=== PATIENT | female | born 1935 | race Caucasian/White ===

== ENCOUNTER → 2016-08-19 | Outpatient (CLI) | payer OTHER ==
[~2016-08-19] MED LIST: ALLO300T2 PO; ASPI81TA28 PO; ATEN-173 PO; Amlodipine PO; CHOL200010 PO; CINN1CAP2 PO; CRAN1CAP6 PO; FURO40TA3 PO; INSUINJ4 SQ; SITA50TA PO; potassium PO
[2016-08-19 17:26] LABS: HEMATOCRIT 31.4 % (37-47); MEAN CORPUSCULAR HGB CONC 31.2 g/dl (32-36); MEAN PLATELET VOLUME 10.4 fL (7.4-10.4); PLATELET COUNT 226 K/uL (130-400); RED BLOOD COUNT 3.27 M/uL (4.2-5.4); WHITE BLOOD COUNT 8.48 K/uL (4.8-10.8)
[2016-08-19 17:44] LABS: BLOOD UREA NITROGEN 41 mg/dl (7-18); BUN/CREATININE RATIO 21.4 (10-20); CALCIUM 8.5 mg/dl (8.5-10.1); CARBON DIOXIDE 27 mmol/L (21-32); CHLORIDE 104 mmol/L (98-107); GLUCOSE 158 mg/dl (70-99); POTASSIUM 4.2 mmol/L (3.5-5.1); SODIUM 140 mmol/L (136-145)
[2016-08-19 17:49] LABS: PHOSPHORUS 4.2 mg/dl (2.5-4.9); TOTAL IRON BINDING CAPACITY 302 mcg/dl (250-450)
== END | disposition home or self-care (01) ==
LOC: C.LABPVFM 13:37
PROVIDERS: ATTEND Internal Medicine Nephrology
DX: I10 Essential (primary) hypertension (principal); N18.3 Chronic kidney disease, stage 3 (moderate); Z95.2 Presence of prosthetic heart valve; E55.9 Vitamin D deficiency, unspecified

== ENCOUNTER → 2016-09-16 | Outpatient (CLI) | payer OTHER ==
[2016-09-17 06:03] LABS: ESTIMATED AVERAGE GLUCOSE 134 mg/dl; HA1C FLAG Normal (Normal)
== END | disposition home or self-care (01) ==
LOC: C.LABPVFM 13:34
PROVIDERS: ATTEND Nurse Practitioner
DX: E11.9 Type 2 diabetes mellitus without complications (principal)

== ENCOUNTER → 2017-03-17 | Outpatient (CLI) | payer OTHER ==
[2017-03-17 17:40] LABS: HEMATOCRIT 34.9 % (37-47); MEAN CELL VOLUME 98.9 fL (80-100); MEAN CORPUSCULAR HEMOGLOBIN 30.3 pg (25-34); MEAN CORPUSCULAR HGB CONC 30.7 g/dl (32-36); MEAN PLATELET VOLUME 10.9 fL (7.4-10.4); PLATELET COUNT 252 K/uL (130-400); RED BLOOD COUNT 3.53 M/uL (4.2-5.4); WHITE BLOOD COUNT 9.61 K/uL (4.8-10.8)
[2017-03-17 17:46] LABS: BLOOD UREA NITROGEN 34 mg/dl (7-18); BUN/CREATININE RATIO 21.1 (10-20); CALCIUM 8.3 mg/dl (8.5-10.1); CARBON DIOXIDE 29 mmol/L (21-32); CHLORIDE 105 mmol/L (98-107); GLUCOSE 242 mg/dl (70-99); POTASSIUM 3.9 mmol/L (3.5-5.1); SODIUM 138 mmol/L (136-145)
[2017-03-17 17:51] LABS: FERRITIN 82.8 ng/ml (8.0-388.0); PHOSPHORUS 3.7 mg/dl (2.5-4.9); TOTAL IRON BINDING CAPACITY 281 mcg/dl (250-450)
[2017-03-18 06:58] LABS: ESTIMATED AVERAGE GLUCOSE 220 mg/dl; HA1C FLAG Normal (Normal)
== END | disposition home or self-care (01) ==
LOC: C.LABPVFM 13:46
PROVIDERS: ATTEND Nurse Practitioner
DX: I12.9 Hypertensive chronic kidney disease with stage 1 through stage 4 chronic kidney disease, or unspecified chronic kidney disease (principal); R60.9 Edema, unspecified; N18.3 Chronic kidney disease, stage 3 (moderate); E11.65 Type 2 diabetes mellitus with hyperglycemia; E55.9 Vitamin D deficiency, unspecified; D64.9 Anemia, unspecified

== ENCOUNTER → 2017-04-28 | Outpatient (CLI) | payer OTHER ==
--- NOTE | 2017-04-28 14:26 | DIAGNOSTIC IMAGING REPORT ---
CERVICAL SPINE 5 VIEWS HISTORY: NECK PAIN PARESTHESIA OF UPPER EXTREMITY WEAKNESS OF BOTH COMPARISON: None. FINDINGS: The cervical spine is visualized from C1 through C7. There is no fracture. Moderate facet osteoarthritis seen from the C3-C6 levels. 2.5 mm of anterolisthesis of C4 on C5. Moderate disc space narrowing at C3-C4, C4-C5, C5-C6 with endplate osteophytes. Severe disc space narrowing at C6-C7. Mild bilateral neural foraminal narrowing at C3-C4 and C4-C5. Moderate right-sided neural foraminal narrowing at C5-C6. Prevertebral soft tissues and the atlantodens interval are intact. IMPRESSION: 1. Moderately advanced degenerative changes within the cervical spine as described above. 2. There is 2.5 mm of anterolisthesis of C4 on C5. Electronically signed by: Duane Mathew M.D. 04/28/2017 2:24 PM Dictated Date/Time: 04/28/2017 2:17 PM
== END | disposition home or self-care (01) ==
LOC: C.RADPV 13:50
PROVIDERS: ATTEND Neuromusculoskeletal Medicine & OMM
DX: M54.2 Cervicalgia (principal); R20.2 Paresthesia of skin; R29.898 Other symptoms and signs involving the musculoskeletal system

== ENCOUNTER 2017-05-23 13:24 | Inpatient (IN) | payer OTHER ==
[~2017-05-23] VITALS: Ht 170.2 cm; Wt 102.7 kg
--- NOTE | 2017-05-23 14:02 | EMERGENCY ROOM VISIT NOTE ---
History First contact with patient: 13:31 Chief Complaint: FALL Stated Complaint: FALLS History of Present Illness The patient is a 82 year old female who presents to the Emergency Room with complaints of frequent falls over the last several weeks. The patient was in her recliner last night. She tried to get up when her left leg gave out and she crumpled to the floor landing on her buttocks. She did strike the back of her head against a carpeted floor. There was no loss of consciousness. She denies any lightheadedness, dizziness, chest pain, shortness of breath or heart palpitations before she fell. The patient also had a fall the night before where she struck her face against a piece of furniture. Again, no loss of consciousness. She does not take any blood thinners. The patient typically ambulates with 2 canes. She unfortunately broke her right wrist this past week so she is only able to use one cane. She otherwise reports being in fairly good health without any recent illnesses. Review of Systems 10 system review performed and negative unless noted in HPI or below Past Medical/Surgical History Medical Problems: (1) Aortic stenosis (2) Falls frequently (3) HTN (hypertension) (4) Insulin dependent diabetes mellitus Family History Diabetes mellitus FH: heart disease Social History Smoking Status: Never Smoker Alcohol Use: none Marital Status: Housing Status: lives with significant other Occupation Status: retired Current/Historical Medications Scheduled Allopurinol (Zyloprim), 300 MG PO DAILY Amlodipine (Norvasc), 5 MG PO DAILY Aspirin (Aspirin Ec), 81 MG PO DAILY Atenolol (Tenormin), 50 MG PO BID Atorvastatin (Lipitor), 40 MG PO HS Cholecalciferol (Vitamin D), 1 CAP PO DAILY Cinnamon (Cinnamon), 500 MG PO DAILY Cranberry (Vaccinium Macrocarp (Cranberry), 1 CAP PO DAILY Ferrous Sulfate (Kp Ferrous Sulfate), 325 MG PO DAILY Furosemide (Lasix), 40 MG PO BID Insulin Glargine (Lantus Solostar), 48 UNITS SC QAM Insulin Glargine (Lantus Solostar), 40 UNITS SC QPM Potassium Chloride (Micro-K Ext Rel), 20 MEQ PO DAILY Sitagliptin Phosphate (Januvia), 50 MG PO DAILY Physical Exam Vital Signs Date Time Temp Pulse Resp B/P (MAP) Pulse Ox O2 Delivery O2 Flow Rate FiO2 05/23/17 15:22 62 16 152/52 99 Room Air 05/23/17 13:40 36.9 66 20 162/57 96 Room Air 05/23/17 13:36 67 Physical Exam VITALS: Vitals are noted on the nurse's note and reviewed by myself. Vital signs stable. GENERAL: 82-year-old female, in no acute distress, HEAD: Right periorbital ecchymosis noted. EARS: External auditory canals clear, tympanic membranes pearly mckee without erythema or effusion bilaterally. EYES: Pupils equal round and reactive to light and accommodation. Conjunctivae without injection, sclerae without icterus. Extraocular movements intact. MOUTH: Mucous membranes moist. Tonsils are not enlarged. Pharynx without erythema or exudate. Uvula midline. Airway patent. Tongue does not deviate. NECK: Tenderness over the cervical spinous processes. Full range of motion of the neck. HEART: Regular rate and rhythm without murmurs gallops or rubs. LUNGS: Clear to auscultation bilaterally without wheezes, rales or rhonchi. No accessory muscle use. ABDOMEN: Positive bowel sounds x 4.Soft, nontender, without organomegaly. No guarding or rebound tenderness. MUSCULOSKELETAL: No muscle atrophy, erythema, or edema noted. Bilateral weakness noted of the lower extremities at 2/5. Tenderness to palpation over the lumbar spinous processes. Splint in place on the right wrist. NEURO: Patient was alert and oriented to person place and time. Normal sensation to touch. No focal neurological deficits. Medical Decision & Procedures ER Provider Diagnostic Interpretation: Maxillofacial CT IMPRESSION: There is no evidence of facial bone fracture. Electronically signed by: Paddy Iglesias M.D. Right hip x-ray IMPRESSION: Osteopenia and arthritic change as above. No right hip fracture is identified. Electronically signed by: Paddy Iglesias M.D. 05/23/2017 3:[address] head IMPRESSION: 1. There is no hemorrhage, mass effect, or evidence of acute territorial ischemia by CT criteria. 2. Right frontal, periorbital, and premalar scalp contusion. No depressed calvarial fracture is seen. Electronically signed by: Paddy Iglesias M.D. Chest x-ray IMPRESSION: Low lung volumes and cardiomegaly with no acute cardiopulmonary abnormality. Laboratory Results 05/23/17 14:00 Red Blood Count 3.31, Mean Corpuscular Volume 95.8, Mean Corpuscular Hemoglobin 31.1, Mean Corpuscular Hemoglobin Concent 32.5, Mean Platelet Volume 10.1, Neutrophils (%) (Auto) 74.4, Lymphocytes (%) (Auto) 17.0, Monocytes (%) (Auto) 7.2, Eosinophils (%) (Auto) 0.9, Basophils (%) (Auto) 0.4, Neutrophils # (Auto) 6.80, Lymphocytes # (Auto) 1.56, Monocytes # (Auto) 0.66, Eosinophils # (Auto) 0.08, Basophils # (Auto) 0.04 05/23/17 14:00 Test 05/23/17 14:00 05/23/17 14:24 White Blood Count 9.15 K/uL (4.8-10.8) Red Blood Count 3.31 M/uL (4.2-5.4) Hemoglobin 10.3 g/dL (12.0-16.0) Hematocrit 31.7 % (37-47) Mean Corpuscular Volume 95.8 fL (80-100) Mean Corpuscular Hemoglobin 31.1 pg (25-34) Mean Corpuscular Hemoglobin Concent 32.5 g/dl (32-36) Platelet Count 198 K/uL (130-400) Mean Platelet Volume 10.1 fL (7.4-10.4) Neutrophils (%) (Auto) 74.4 % Lymphocytes (%) (Auto) 17.0 % Monocytes (%) (Auto) 7.2 % Eosinophils (%) (Auto) 0.9 % Basophils (%) (Auto) 0.4 % Neutrophils # (Auto) 6.80 K/uL (1.4-6.5) Lymphocytes # (Auto) 1.56 K/uL (1.2-3.4) Monocytes # (Auto) 0.66 K/uL (0.11-0.59) Eosinophils # (Auto) 0.08 K/uL (0-0.5) Basophils # (Auto) 0.04 K/uL (0-0.2) RDW Standard Deviation 51.9 fL (36.4-46.3) RDW Coefficient of Variation 14.9 % (11.5-14.5) Immature Granulocyte % (Auto) 0.1 % Immature Granulocyte # (Auto) 0.01 K/uL (0.00-0.02) Anion Gap 8.0 mmol/L (3-11) Est Creatinine Clear Calc Drug Dose 38.3 ml/min Estimated GFR () 40.0 Estimated GFR (Non- 34.6 BUN/Creatinine Ratio 23.4 (10-20) Calcium Level 8.1 mg/dl (8.5-10.1) Total Bilirubin 0.8 mg/dl (0.2-1) Aspartate Amino Transf (AST/SGOT) 24 U/L (15-37) Alanine Aminotransferase (ALT/SGPT) 21 U/L (12-78) Alkaline Phosphatase 78 U/L (45-117) Troponin I 0.017 ng/ml (0-0.045) Total Protein 8.8 gm/dl (6.4-8.2) Albumin 3.1 gm/dl (3.4-5.0) Globulin 5.7 gm/dl (2.5-4.0) Albumin/Globulin Ratio 0.5 (0.9-2) Urine Color YELLOW Urine Appearance CLEAR (CLEAR) Urine pH 5.0 (4.5-7.5) Urine Specific [place] 1.018 (1.000-1.030) Urine Protein NEG (NEG) Urine Glucose (UA) NEG (NEG) Urine Ketones NEG (NEG) Urine Occult Blood TRACE (NEG) Urine Nitrite NEG (NEG) Urine Bilirubin NEG (NEG) Urine Urobilinogen NEG (NEG) Urine Leukocyte Esterase TRACE (NEG) Urine WBC (Auto) 1-5 /hpf (0-5) Urine RBC (Auto) 0-4 /hpf (0-4) Urine Hyaline Casts (Auto) 0 /lpf (0-5) Urine Epithelial Cells (Auto) 0-5 /lpf (0-5) Urine Bacteria (Auto) 4+ (NEG) Urine Yeast (Auto) (NONE PRSENT) ECG Indication: other Rate (beats per minute): 62 Rhythm: normal sinus Findings: other (T-wave inversion noted in the lateral leads.) Change: no significant change ED Course Patient was seen and examined Vital signs including blood pressure were reviewed medications list was verified with patient Labs were obtained, and a saline lock was established The patient declined pain medication. Imaging was reviewed. The patient was reassessed and resting comfortably. We discussed the results of her workup. She voiced understanding. The patient was also examined by myself supervising physician. The case was discussed with the goal hospitalist. They agreed to admit the patient for further workup and treatment. Medical Decision Differential diagnosis: Facial contusion, fracture, intracranial bleed, skull fracture, Spine fracture, ligamentous injury, subluxation, spondylolisthesis, spondylosis, herniated disc, contusion, muscle spasm, syncopal episode This patient is an 82-year-old female that presents to the emergency department with multiple falls. Her fall last night was not syncopal in nature. It was mechanical. Her leg gave out from under her. On exam, the patient had equal lower extremity weakness. She did not have any signs of a CVA. The patient is currently being worked up for neck and back pain. The patient was complaining of pain in the neck. She also had pain in the lumbar spine. This prompted me to get an MRI. The MRI was still pending at the time of admission. I do not feel like the patient is safe to go home. She has a splint on the right wrist for a fracture. She typically ambulates with to canes, and she is not able to do that at this time. Her is also elderly. I suggested that the patient be admitted for further workup and Disposition. Of note, the radiology notified me of the abnormal findings on the MRI of her C- spine. The patient had RD been admitted, and left the emergency department. This information was passed on to the hospitalist service. This chart was completed in part utilizing [employer] Speech Voice Recognition software. Attempts were made to minimize the grammatical errors, random word insertions, pronoun errors and incomplete sentences. Any formal questions or concerns about the content, text or information contained within the body of this dictation should be directly addressed to the provider for clarification. Medication Reconcilliation Current Medication List: was personally reviewed by me Blood Pressure Screening Patient's blood pressure: Elevated blood pressure Blood pressure disposition: Did not require urgent referral Impression Primary Impression: Fall Additional Impression: Weakness Departure Information Referrals Annette Ku C.R.N.P (PCP) Patient Instructions My [facility] Problem Qualifiers
[2017-05-23 14:08] LABS: BASO % 0.4 %; BASO ABS # 0.04 K/uL (0-0.2); COMPLETE YES; EOS % 0.9 %; HEMATOCRIT 31.7 % (37-47); IG% 0.1 %; LYMPH ABS # 1.56 K/uL (1.2-3.4); MEAN CELL VOLUME 95.8 fL (80-100); MEAN CORPUSCULAR HEMOGLOBIN 31.1 pg (25-34); MEAN CORPUSCULAR HGB CONC 32.5 g/dl (32-36); MEAN PLATELET VOLUME 10.1 fL (7.4-10.4); MONO % 7.2 %; NEUT % 74.4 %; PLATELET COUNT 198 K/uL (130-400); RED BLOOD COUNT 3.31 M/uL (4.2-5.4); WHITE BLOOD COUNT 9.15 K/uL (4.8-10.8)
[2017-05-23 14:28] LABS: BUN/CREATININE RATIO 23.4 (10-20); CALCIUM 8.1 mg/dl (8.5-10.1); CREATININE 1.42 mg/dl (0.60-1.20); POTASSIUM 3.4 mmol/L (3.5-5.1)
[2017-05-23 14:32] LABS: ALB/GLOB RATIO 0.5 (0.9-2)
[2017-05-23 14:51] LABS: URINE APPEARANCE CLEAR (CLEAR); URINE BILIRUBIN NEG (NEG); URINE COLOR YELLOW; URINE EPITHELIAL CELL AUTO 0-5 /lpf (0-5); URINE NITRITE NEG (NEG); URINE SPECIFIC GRAVITY 1.018 (1.000-1.030); UROBILINOGEN NEG (NEG)
[2017-05-23 14:54] LABS: MANUAL MICROSCOPIC REQUIRED? NO; REVIEW REQ? YES
--- NOTE | 2017-05-23 14:54 | DIAGNOSTIC IMAGING REPORT ---
CT SCAN OF THE BRAIN WITHOUT IV CONTRAST CLINICAL HISTORY: Fall with head injury. COMPARISON STUDY: No priors. TECHNIQUE: Unenhanced axial CT scan of the brain is performed from the vertex to the skull base. CT DOSE: 746.82 mGy.cm FINDINGS: Brain parenchyma: There are age-related involutional changes noting mild to moderate patchy subcortical and periventricular microangiopathic change. There is no hemorrhage, mass effect, or evidence of acute territorial ischemia by CT criteria. Ortiz-white matter is preserved. No extra-axial fluid collection is seen. Mineralization is noted in the basal ganglia. Ventricles, sulci, cisterns: Prominent secondary to involutional change. Intracranial vasculature: There is atherosclerotic calcification of the cavernous carotid arteries. Calvarium: The skeletal structures are osteopenic. No depressed femoral fracture is seen. Soft tissues: There is right periorbital, frontal, and premalar soft tissue contusion. Sinuses and mastoids: The visualized paranasal sinuses are clear. The mastoid air cells are well pneumatized. Orbits: The bony orbits are grossly intact. There are bilateral ocular lens implants. IMPRESSION: 1. There is no hemorrhage, mass effect, or evidence of acute territorial ischemia by CT criteria. 2. Right frontal, periorbital, and premalar scalp contusion. No depressed calvarial fracture is seen. Electronically signed by: Paddy Iglesias M.D. 05/23/2017 2:53 PM Dictated Date/Time: 05/23/2017 2:50 PM
--- NOTE | 2017-05-23 15:00 | DIAGNOSTIC IMAGING REPORT ---
CT SCAN OF THE FACIAL BONES WITHOUT IV CONTRAST CLINICAL HISTORY: Fall. Right facial injury. COMPARISON STUDY: CT of the brain performed concurrently on 05/23/2017. TECHNIQUE: High-resolution CT scan of the facial bones is performed. Images are reviewed in the axial, sagittal, and coronal planes. IV contrast was not administered for this examination. A dose lowering technique was utilized adhering to the principles of ALARA. CT DOSE: Reported separately under the concurrently performed CT scan of the brain. FINDINGS: The skeletal structures are osteopenic. There is no evidence of facial bone fracture. The bony orbits are intact and the orbital contents are within normal limits noting bilateral ocular lens implants. The zygomatic arches, nasal bones, and pterygoid plates are preserved. There is leftward deviation of the bony nasal septum. The maxilla and mandible are intact. Arthritic change is seen at the temporomandibular joints. There are no layering blood products within the paranasal sinuses. The sinuses and mastoids are clear. The visualized calvarium and upper cervical spine are maintained noting spondylotic change. Partially imaged brain parenchyma is within normal limits noting age-related involutional change. There is mild right frontal, periorbital, and premalar scalp contusion. The patient is edentulous. There is atherosclerotic calcification of the carotid bulbs. Large calcified tonsilliths are observed. IMPRESSION: There is no evidence of facial bone fracture. Electronically signed by: Paddy Iglesias M.D. 05/23/2017 2:58 PM Dictated Date/Time: 05/23/2017 2:53 PM
--- NOTE | 2017-05-23 15:23 | DIAGNOSTIC IMAGING REPORT ---
RIGHT HIP 2 VIEWS CLINICAL HISTORY: Fall with right hip pain. FINDINGS: AP and frog-leg views of the right hip are correlated with pelvic radiograph dated 05/13/2016. The skeletal structures are osteopenic. No fracture is seen in the right hip or the partially imaged right hemipelvis. Moderate arthritic change and joint space loss is present in the hip. Large enthesophytes arise in the greater trochanter. The overlying soft tissues are normal in appearance. Surgical clips project over the right groin and there is atherosclerotic calcification of the femoral artery. IMPRESSION: Osteopenia and arthritic change as above. No right hip fracture is identified. Electronically signed by: Paddy Iglesias M.D. 05/23/2017 3:21 PM Dictated Date/Time: 05/23/2017 3:20 PM
--- NOTE | 2017-05-23 15:25 | DIAGNOSTIC IMAGING REPORT ---
SINGLE VIEW CHEST CLINICAL HISTORY: Fall. FINDINGS: An AP, portable, semierect chest radiograph is compared to study dated 01/05/2014. The examination is degraded by portable technique and patient rotation. The heart is enlarged and there is atherosclerotic calcification of the thoracic aorta. There is evidence of previous cardiac valve surgery. The pulmonary vasculature is noncongested. There are low lung volumes and chronic interstitial thickening. Bibasilar atelectasis is observed. No airspace consolidation is seen typical for pneumonia and there is no large pleural effusion. No pneumothorax is seen. The skeletal structures are osteopenic. Arthritic change is noted in the thoracic spine and shoulders. There is chronic posttraumatic deformity of the left humerus. IMPRESSION: Low lung volumes and cardiomegaly with no acute cardiopulmonary abnormality. Electronically signed by: Paddy Iglesias M.D. 05/23/2017 3:24 PM Dictated Date/Time: 05/23/2017 3:22 PM
[2017-05-23] MEDS ORDERED: POTA10CA28 PO (16:30)
[2017-05-23] MEDS ORDERED: FERR1TAB13 PO (16:30)
[2017-05-23] MEDS ORDERED: INSDGIPEN SC ×2 (16:30)
[2017-05-23] MEDS ORDERED: ATOR-24 PO (16:30)
[2017-05-23] MEDS ORDERED: AMLO-110 PO (16:30)
[2017-05-23] MEDS ORDERED: ALUMINUM/MAGNESIUM/SIMETH (MAALOX MAX) 30 ML UDC PO PRN (17:00)
[2017-05-23] MEDS ORDERED: ONDANSETRON INJ 2 MG/ML 2 ML VIAL IV PRN (17:00)
[2017-05-23] MEDS ORDERED: ACETAMINOPHEN 325 MG TAB PO PRN (17:00)
[2017-05-23] MEDS ORDERED: MAGNESIUM HYDROXIDE SUSP 30 ML UDC PO PRN (17:00)
--- NOTE | 2017-05-23 17:12 | History and Physical ---
History & Physical Date & Time of Service: May 23, 2017 at 16:56 Chief Complaint: FALLS Primary Care Physician: Annette Ku C.R.N.P History of Present Illness Source: patient 82 y/o F AVR, diastolic CHF, CKD III, DM, HTN, chronic anemia, gout. Pt suffers from an unstable gait and frequent falls. She ambulates with 2 canes and recently broke her R wrist. This has further impaired her ability to ambulate leading to 2 significant falls over the past week. She suffered head and face trauma without LOC during both falls. She presents as she feels she is not safe at home due to further fall risk. She is requesting rehab placement at [facility]. The pt denies symptoms preceding her fall such as CP , palpitations or lightheadedness. 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 3) Cardiac cath 2013 - Moderate RCA disease - nonocclusive - no additional CAD - severe pulmonary hypertension 4) Gout 5) Chronic diastolic CHF 6) MGUS 7) Moderate mitral regurge 8) Chronic unstable gait and frequent falls 9) Obese 10) DM II Family History Diabetes mellitus FH: heart disease Social History Smoking Status: Never Smoker Marital Status: Occupational Status: retired Immunizations History of Influenza Vaccine: Yes Influenza Vaccine Date: May 03, 2015 History of Tetanus Vaccine?: Yes Tetanus Immunization Date: Apr 03, 2015 History of Pneumococcal: Yes Pneumococcal Date: May 24, 2015 History of Hepatitis B Vaccine: Unknown Multi-Drug Resistant Organisms History of MDRO: No Allergies Coded Allergies: No Known Allergies (Unverified , 05/23/17) Home Medications Scheduled Allopurinol (Zyloprim), 300 MG PO DAILY Amlodipine (Norvasc), 5 MG PO DAILY Aspirin (Aspirin Ec), 81 MG PO DAILY Atenolol (Tenormin), 50 MG PO BID Atorvastatin (Lipitor), 40 MG PO HS Cholecalciferol (Vitamin D), 1 CAP PO DAILY Cinnamon (Cinnamon), 500 MG PO DAILY Cranberry (Vaccinium Macrocarp (Cranberry), 1 CAP PO DAILY Ferrous Sulfate (Kp Ferrous Sulfate), 325 MG PO DAILY Furosemide (Lasix), 40 MG PO BID Insulin Glargine (Lantus Solostar), 48 UNITS SC QAM Insulin Glargine (Lantus Solostar), 40 UNITS SC QPM Potassium Chloride (Micro-K Ext Rel), 20 MEQ PO DAILY Sitagliptin Phosphate (Januvia), 50 MG PO DAILY Review of Systems Constitutional: No fever, No chills, No sweats Eyes: No worsening of vision ENT: + problem reported (Periorbital trauma/swelling R), No hearing loss, No unusual epistaxis, No nasal symptoms Respiratory: No cough, No sputum, No wheezing Cardiovascular: No chest pain, No orthopnea, No PND Abdomen: No pain, No nausea Musculoskeletal: + joint pain, + muscle pain Genitourinary - Female: No dysuria, No urinary frequency Neurologic: + balance problems, No memory loss, No paralysis Psychiatric: No depression symptoms Endocrine: No fatigue Hematologic / Lymphatic: No abnormal bleeding/bruising Integumentary: No rash Allergic / Immunologic: No environmental allergies Physical Exam Vital Signs Date Time Temp Pulse Resp B/P (MAP) Pulse Ox O2 Delivery O2 Flow Rate FiO2 05/23/17 15:22 62 16 152/52 99 Room Air 05/23/17 13:40 36.9 66 20 162/57 96 Room Air 05/23/17 13:36 67 General Appearance: WD/WN Head: normocephalic, + pertinent finding (R periorbital bruising/swelling - multiple lacs) Eyes: + pertinent finding (R periorbital bruising/swelling - multiple lacs) ENT: normal ENT inspection, pharynx normal Neck: supple, no JVD Respiratory/Chest: chest non-tender, lungs clear, normal breath sounds Cardiovascular: regular rate, rhythm, no edema, no murmur Abdomen/GI: normal bowel sounds, non tender, soft Back: normal inspection, no CVA tenderness, no muscle spasm Extremities/Musculoskelatal: normal inspection, no calf tenderness, normal capillary refill Neurologic/Psych: case consultant II-XII nml as tested, no motor/sensory deficits, alert, oriented x 3 Skin: + pertinent finding (Bruising and lacerations as above) Diagnostics Laboratory Results Results Past 24 Hours Test 05/23/17 14:00 05/23/17 14:24 Range/Units White Blood Count 9.15 4.8-10.8 K/uL Red Blood Count 3.31 4.2-5.4 M/uL Hemoglobin 10.3 12.0-16.0 g/dL Hematocrit 31.7 37-47 % Mean Corpuscular Volume 95.8 80-100 fL Mean Corpuscular Hemoglobin 31.1 25-34 pg Mean Corpuscular Hemoglobin Concent 32.5 32-36 g/dl Platelet Count 198 130-400 K/uL Mean Platelet Volume 10.1 7.4-10.4 fL Neutrophils (%) (Auto) 74.4 % Lymphocytes (%) (Auto) 17.0 % Monocytes (%) (Auto) 7.2 % Eosinophils (%) (Auto) 0.9 % Basophils (%) (Auto) 0.4 % Neutrophils # (Auto) 6.80 1.4-6.5 K/uL Lymphocytes # (Auto) 1.56 1.2-3.4 K/uL Monocytes # (Auto) 0.66 0.11-0.59 K/uL Eosinophils # (Auto) 0.08 0-0.5 K/uL Basophils # (Auto) 0.04 0-0.2 K/uL RDW Standard Deviation 51.9 36.4-46.3 fL RDW Coefficient of Variation 14.9 11.5-14.5 % Immature Granulocyte % (Auto) 0.1 % Immature Granulocyte # (Auto) 0.01 0.00-0.02 K/uL Sodium Level 139 136-145 mmol/L Potassium Level 3.4 3.5-5.1 mmol/L Chloride Level 105 98-107 mmol/L Carbon Dioxide Level 26 21-32 mmol/L Anion Gap 8.0 3-11 mmol/L Blood Urea Nitrogen 33 7-18 mg/dl Creatinine 1.42 0.60-1.20 mg/dl Est Creatinine Clear Calc Drug Dose 38.3 ml/min Estimated GFR () 40.0 Estimated GFR (Non- 34.6 BUN/Creatinine Ratio 23.4 10-20 Random Glucose 205 70-99 mg/dl Calcium Level 8.1 8.5-10.1 mg/dl Total Bilirubin 0.8 0.2-1 mg/dl Aspartate Amino Transf (AST/SGOT) 24 15-37 U/L Alanine Aminotransferase (ALT/SGPT) 21 12-78 U/L Alkaline Phosphatase 78 45-117 U/L Troponin I 0.017 0-0.045 ng/ml Total Protein 8.8 6.4-8.2 gm/dl Albumin 3.1 3.4-5.0 gm/dl Globulin 5.7 2.5-4.0 gm/dl Albumin/Globulin Ratio 0.5 0.9-2 Urine Color YELLOW Urine Appearance CLEAR CLEAR Urine pH 5.0 4.5-7.5 Urine Specific [place] 1.018 1.000-1.030 Urine Protein NEG NEG Urine Glucose (UA) NEG NEG Urine Ketones NEG NEG Urine Occult Blood TRACE NEG Urine Nitrite NEG NEG Urine Bilirubin NEG NEG Urine Urobilinogen NEG NEG Urine Leukocyte Esterase TRACE NEG Urine WBC (Auto) 1-5 0-5 /hpf Urine RBC (Auto) 0-4 0-4 /hpf Urine Hyaline Casts (Auto) 0 0-5 /lpf Urine Epithelial Cells (Auto) 0-5 0-5 /lpf Urine Bacteria (Auto) 4+ NEG Urine Yeast (Auto) NONE PRSENT Microbiology Results 05/23/17 Urine Culture, Received Pending Diagnostic Radiology CT head 1. There is no hemorrhage, mass effect, or evidence of acute territorial ischemia by CT criteria. 2. Right frontal, periorbital, and premalar scalp contusion. No depressed calvarial fracture is seen. No additional findings on maxillofacial CT No acute findings on CXR EKG NSR - LVH Impression Assessment and Plan 82 y/o F AVR, diastolic CHF, CKD III, DM, HTN, chronic anemia, gout. Pt suffers from an unstable gait and frequent falls. She ambulates with 2 canes and recently broke her R wrist. This has further impaired her ability to ambulate leading to 2 significant falls over the past week. She suffered head and face trauma without LOC during both falls. She presents as she feels she is not safe at home due to further fall risk. She is requesting rehab placement at [facility]. The pt denies symptoms preceding her fall such as CP , palpitations or lightheadedness. 1) Frequent falls - PT/OT ordered - goal is placement at [facility] per pt request. Fall precautions requested. 2) Diastolic CHF - cont Lasix as ordered - euvolemic clinically at time of admission. 3) CKD III - creat at baseline 4) Chronic anemia - Hb at baseline 5) AVR -Bovine valve - no history of anticoagulant use. 6) DM - Placed on SS with Glargine 7) Gout - cont Allopurinol Full code - SCDs due to head traume - total time for this admit including review of labs, meds, imaging, records - discussion with pt and ER attending - 38 min Level of Care Med/Surg VTE Prophylaxis VTE Risk Assessment Done? Y/N: Yes Risk Level: Moderate Given or contraindicated: SCD's
[2017-05-23] MEDS ORDERED: GLUCOSE 40% GEL 15 GM TUBE PO PRN (17:15)
[2017-05-23] MEDS ORDERED: DEXTROSE 50% 50 ML SYR IV PRN (17:15)
[2017-05-23] MEDS ORDERED: GLUCAGON FOR INJ 1 MG VIAL SQ PRN (17:15)
[2017-05-23] MEDS ORDERED: POLYETHYLENE (MIRALAX) 17 GM PACK PO PRN (17:15)
[2017-05-23] MEDS ORDERED: GLUCOSE 10 TABS/TUBE PO PRN (17:15)
--- NOTE | 2017-05-23 17:18 | EMERGENCY ROOM VISIT NOTE ---
ED Visit Note First contact with patient: 13:31 Patient was seen by our PA/SOLUTION SALES SENIOR EXECUTIVE. I was involved in the patient's care and did evaluate the patient myself. I was involved in the care throughout the ER stay. Patient presents with weakness, she fell because her leg gave out. Her workup here is relatively benign. An MRI of the lumbar spine is still pending. Given the weakness and fall, rehabilitation, strengthening and a hospital stay was felt warranted. The on-call hospitalist was consulted.
--- NOTE | 2017-05-23 17:44 | DIAGNOSTIC IMAGING REPORT ---
MRI OF LUMBAR SPINE WITHOUT IV CONTRAST CLINICAL HISTORY: Lower extremity weakness. Back pain. Falls. COMPARISON STUDY: Skeletal survey dated 07/24/2015 TECHNIQUE: MRI of the lumbar spine is performed utilizing various T1 and T2-weighted sequences in the axial and sagittal planes. IV contrast was not administered for this examination. FINDINGS: Lumbar spine: Vertebral body height is maintained throughout the lumbar spine. There is a minimal chronic superior endplate compression deformity of T12. A Schmorl's node is seen in the superior endplate of T12. Minimal anterolisthesis is noted at L4-L5. Alignment is otherwise preserved. Tiny anterior osteophytes are seen throughout. The transverse and spinous processes are intact. There is no evidence of spondylolysis. No destructive bony lesion is seen. Minimal degenerative endplate change is present at L4-L5. Intervertebral discs: There is degenerative disc desiccation seen throughout the lumbar spine. Mild to moderate loss of height is present at L4-L5. Spinal cord: The visualized spinal cord is normal in morphology and signal intensity. The conus medullaris terminates at the L1-L2 interspace. The nerve roots of the cauda equina are normal in morphology. L1-L2: There is minimal posterior disc bulge. The central canal and neural foramina are patent. L2-L3: Unremarkable. L3-L4: There is minimal posterior disc bulge. In conjunction with hypertrophy of the ligamentum flavum, there is minimal acquired compromise of the central canal at this level with a minimum AP diameter of 10 mm. There is mild bilateral subarticular stenosis. The neural foramina are patent. L4-L5: There is a small posterior disc bulge with annular fissure. In conjunction with hypertrophy of the ligamentum flavum, there is mild acquired compromise of the central canal at this level with a minimum AP diameter of 8 mm. There is bilateral subarticular stenosis. The disc bulge may abut the exiting left L4 and the transiting bilateral L5 nerve roots. Facet arthropathy is of no consequence. The neural foramina are patent. L5-S1: There is a small posterior disc bulge with annular fissure. There is no significant acquired compromise of the central canal at this level. Facet arthropathy causes mild bilateral neural foraminal stenosis, right greater than left. There is mild bilateral subarticular stenosis with possible impingement on the exiting bilateral L5 nerve roots. Sacrum: The visualized sacrum is normal in morphology and signal intensity. Soft tissues: There is near complete fatty atrophy of the paraspinous musculature. The iliopsoas musculature is also atrophic. The partially visualized kidneys demonstrate marked cortical atrophy. IMPRESSION: 1. There is no large disc herniation or high-grade central canal stenosis. 2. Multilevel lumbosacral spondylosis as above. There is mild acquired compromise of the central canal at L3-L4 and L4-L5. See above discussion for detailed level by level analysis. 3. No destructive bony process or fracture is seen. 4. There is a mild chronic superior endplate compression deformity of T12. Dictated: 05/23/2017 5:27 PM Transcribed: 05/23/2017 5:44 PM [email or web address] Electronically signed by: Paddy Iglesias M.D. 05/23/2017 5:50 PM Dictated Date/Time: 05/23/2017 5:27 PM
[2017-05-23] MEDS ORDERED: IV FLUIDS COMPLETED PRN (18:00)
[2017-05-23 18:07] VITALS: BP 167/69; PULSE 66; TEMP 37; O2SAT 99; BMI 35.5
--- NOTE | 2017-05-23 18:20 | DIAGNOSTIC IMAGING REPORT ---
MRI OF THE CERVICAL SPINE WITHOUT IV CONTRAST CLINICAL HISTORY: Neck pain. Upper extremity paresthesias. Recent falls. COMPARISON STUDY: Radiographs of the cervical spine dated 04/28/2017. TECHNIQUE: MRI of the cervical spine is performed using various T1 and T2-weighted sequences in the axial and sagittal planes. IV contrast was not administered for this examination. FINDINGS: Cervical spine: Vertebral body height is maintained throughout the cervical spine. Minimal anterolisthesis is seen at C4-C5. Minimal retrolisthesis is present at C5-C6 and C6-C7. Alignment is otherwise preserved. There is straightening of cervical lordosis with reversal centered at C5. The atlantodental articulation appears maintained noting productive degenerative change. The spinous processes are intact. Small anterior osteophytes are seen throughout. There is significant endplate edema seen at C3-C4 and C4-C5. No destructive osseous lesion is identified. Intervertebral discs: There is degenerative disc desiccation seen throughout the cervical spine. Advanced loss of height is present at C3-C4, C4-C5, C5-C6, and C6-C7. Spinal cord: The cervical spinal cord is normal in morphology. There is mild edema within the cervical cord seen at C4 and C5, likely related to severe spinal stenosis. The remainder of the cervical spinal cord is normal in signal intensity. C2-C3: Uncovertebral and facet arthropathy is of no consequence. The central canal and neural foramina are patent. C3-C4: A posterior disc osteophyte complex eccentric to the left abuts the ventral cord. Uncovertebral and facet arthropathy causes severe left and [id number] right neural foraminal stenosis. The minimum AP canal diameter at this level measures 8 mm. C4-C5: A large posterior disc osteophyte complex effaces the ventral cord. The minimum AP canal diameter at this level measures 4.5 mm. Uncovertebral and facet arthropathy contribute to severe bilateral neural foraminal stenosis, left greater than right. C5-C6: A large posterior disc osteophyte complex effaces the ventral cord. The minimum AP canal diameter measures 5.5 mm. Uncovertebral and facet arthropathy cause severe left and moderate to severe right neural foraminal stenosis. C6-C7: A posterior disc osteophyte complex effaces the ventral subarachnoid space. Uncovertebral and facet arthropathy cause moderate left greater than right neural foraminal stenosis. C7-T1: Unremarkable. Soft tissues: There is minimal prevertebral soft tissue edema seen at C4-C5. There is also edema between the spinous processes of C4-C5 and C5-C6. This may represent ligamentous injury. Brain parenchyma: Partially visualized brain parenchyma at the skull base is normal in appearance. IMPRESSION: 1. There is no MRI evidence of fracture involving the cervical spine. Note that CT is more sensitive in detecting cervical spine fractures. 2. There is mild prevertebral soft tissue edema seen at C4-C5, as well as interspinous edema from C4 to C6. This is nonspecific and may be related to ligamentous injury given the history of recent trauma. 3. Advanced multilevel cervical spondylosis as detailed above, greatest at C4-C5 and C5-C6 where there is severe central canal stenosis. See discussion for detailed level analysis. 4. There is mild edema within the cord at C4 and C5, likely related to severe central canal stenosis. Posttraumatic edema is considered less likely but would be impossible to exclude given the history of recent falls. 5. There is significant endplate edema seen at C3-C4 and C4-C5. Electronically signed by: Paddy Iglesias M.D. 05/23/2017 6:18 PM Dictated Date/Time: 05/23/2017 6:05 PM
[2017-05-23] MEDS ORDERED: NURSING DECISION MEDICATION ORDER SCH (18:30)
[2017-05-23] MEDS ORDERED: MICONAZOLE NITRATE POWDER 43 GM ONE (19:27)
[2017-05-23 21:03] VITALS: BP 135/71; PULSE 64
[2017-05-23] MEDS: ATORVASTATIN 40 MG TAB PO SCH (21:08)
[2017-05-23] MEDS: FUROSEMIDE 40 MG TAB PO SCH (21:08)
[2017-05-23] MEDS: INSULIN GLARGINE SOLOSTAR 100 UNITS/ML 3 ML PEN SC SCH (21:10)
[2017-05-23] MEDS: MICONAZOLE NITRATE POWDER 43 GM EXT PRN (21:11)
[2017-05-23] MEDS: INSULIN ASPART 100 UNITS/ML 3 ML PEN SC SCH (21:11)
[2017-05-23 23:42] VITALS: BP 143/63; PULSE 68; TEMP 37.1; O2SAT 97
[2017-05-24] VITALS: O2SAT 99
[2017-05-24 07:07] VITALS: BP 147/71; PULSE 57; TEMP 36.7; O2SAT 97
[2017-05-24] MEDS ORDERED: OXYCODONE HCL IR 5 MG TAB (IMMEDIATE RELEASE) PO PRN (07:45)
[2017-05-24] MEDS ORDERED: ASPIRIN 81 MG ECTAB PO SCH (08:00)
[2017-05-24] MEDS: ALLOPURINOL 300 MG TAB PO SCH (08:04)
[2017-05-24] MEDS: AMLODIPINE BESYLATE 5 MG TAB PO SCH (08:04)
[2017-05-24] MEDS: POTASSIUM CHLORIDE 10 MEQ TABCR PO SCH (08:04)
[2017-05-24] MEDS: FUROSEMIDE 40 MG TAB PO SCH ×2 (08:05→20:37)
[2017-05-24] MEDS: ACETAMINOPHEN 500 MG TAB PO SCH ×2 (08:16→16:29)
[2017-05-24] MEDS: INSULIN ASPART 100 UNITS/ML 3 ML PEN SC SCH ×4 (08:36→20:39)
[2017-05-24] MEDS: INSULIN GLARGINE SOLOSTAR 100 UNITS/ML 3 ML PEN SC SCH ×2 (08:42→20:40)
[2017-05-24 09:21] LABS: CREATININE 1.46 mg/dl (0.60-1.20); MAGNESIUM 2.4 mg/dl (1.8-2.4); POTASSIUM 3.4 mmol/L (3.5-5.1)
[2017-05-24 09:32] LABS: THYROID STIMULATING HORMONE 1.42 uIu/ml (0.300-4.500)
[2017-05-24] MEDS ORDERED: POTASSIUM CHLORIDE 10 MEQ TABCR PO STA (09:42)
[2017-05-24] MEDS ORDERED: PERFLUTREN LIPID MICROSPHERE (DEFINITY) IV ONE (11:59)
--- NOTE | 2017-05-24 13:17 | ECHOCARDIOGRAM REPORT ---
*NOTICE TO RECEIVING LIBERTARIAN AGENCY This information is strictly Confidential and protected under [place] law. [place] law prohibits you from making any further disclosure of this information unless further disclosure is expressly permitted by the written consent of the person to whom it pertains or is authorized by law. A general authorization for the release of medical or other information is not sufficient for this purpose. Hospital accepts no responsibility if the information is made available to any other person, INCLUDING THE PATIENT. Interpretation Summary * Name: CHAYO MCGOVENR Study Date: 05/24/2017 10:55 AM BP: 147/ mmHg * Patient Location: [id number].[id number]\E419\[id number]\1 HR: 56 * : 1935 (M/d/yyy) Gender: Female Height: 67 in * Age: 82 yrs Ethnicity: CA Weight: 226 lb * Ordering Physician: Ernst Jernigan * Referring Physician: Self, Referred * Performed By: Josias Mejia RDCS * * Reason For Study: H/O AVR, frequent falls * BSA: 2.1 m2 * -- Conclusions -- * Left ventricular systolic function is normal. * No regional wall motion abnormalities noted. * Ejection Fraction = 60-65%. * There is mild concentric left ventricular hypertrophy. * The prosthetic aortic valve is well-seated. * Mild aortic regurgitation. * There is mild mitral stenosis. * There is mild to moderate mitral regurgitation. Procedure Details * A complete two-dimensional transthoracic echocardiogram was performed (2D, M-mode, Doppler and color flow Doppler). * The study was technically difficult. * There were technical limitations due to patient'spoor positioning * A contrast injection of Definity was performed to improve assessment of LV function. * Contrast was injected into an intravenous site in the right arm. * One vial of Definity ultrasound contrast was diluted in normal saline to a total volume of 10 ml. A total of '5' ml of solution was administered during imaging. * Lot # [id number] of Definity utilized for procedure. * Expiration date . * The attending nurse who injected the contrast agent was RENAE Orozco. Left Ventricle * The left ventricle is normal in size. * There is mild concentric left ventricular hypertrophy. * Left ventricular systolic function is normal. * Ejection Fraction = 60-65%. * No regional wall motion abnormalities noted. Right Ventricle * The right ventricle is grossly normal size. * The right ventricular systolic function is normal as assessed by tricuspid annular plane systolic excursion (TAPSE) (normal >1.5 cm). Atria * The left atrium is mildly dilated. * Right atrial size is normal. * There is no evidence of atrial septal defect, but resolution does not allow assessment for a patent foramen ovale. Mitral Valve * The mitral valve is not well visualized. * There is moderate to severe mitral annular calcification. * There is mild mitral stenosis. * There is mild to moderate mitral regurgitation. Tricuspid Valve * The tricuspid valve is not well visualized, but is grossly normal. * There is no tricuspid stenosis. * Significant tricuspid regurgitation is absent. Aortic Valve * Mild aortic regurgitation. * The prosthetic aortic valve is well-seated. * The valve opening cannot be assessed due to imaging artifacts from the prosthesis. Pulmonic Valve * The pulmonary valve is not well seen, but the Doppler examination is normal without significant regurgitation or stenosis. Great Vessels * The aortic root is normal size. * The pulmonary is not well visualized. Pericardium/Pleural * There is no pericardial effusion. Great Vessels * Dilated inferior vena cava with reduced collapsability with sniff indicates an elevated right atrial pressure of 15 mmHg MMode 2D Measurements and Calculations IVSd 1.2 cm IVSs 1.7 cm LVIDd 4.6 cm LVIDs 3.0 cm LVPWd 1.2 cm LVPWs 1.6 cm IVS/LVPW 0.99 FS 35.0 % EDV(Teich) 96.5 ml ESV(Teich) 34.4 ml EF(Teich) 64.4 % EDV(cubed) 96.3 ml ESV(cubed) 26.4 ml EF(cubed) 72.6 % % IVS thick 45.3 % % LVPW thick 36.6 % LV mass(C)d 197.0 grams LV mass(C)dI 92.5 grams/m\S\2 LV mass(C)s 184.8 grams LV mass(C)sI 86.8 grams/m\S\2 SV(Teich) 62.1 ml SI(Teich) 29.2 ml/m\S\2 SV(cubed) 69.9 ml SI(cubed) 32.8 ml/m\S\2 Ao root diam 3.1 cm Ao root area 7.5 cm\S\2 LA dimension 4.4 cm asc Aorta Diam 3.7 cm LA/Ao 1.4 LVOT diam 2.2 cm LVOT area 3.9 cm\S\2 LVAd ap4 29.4 cm\S\2 LVLd ap4 7.8 cm EDV(MOD-sp4) 90.5 ml LVAs ap4 16.7 cm\S\2 LVLs ap4 6.9 cm ESV(MOD-sp4) 33.1 ml EF(MOD-sp4) 63.4 % LVAd ap2 28.5 cm\S\2 LVLd ap2 7.6 cm EDV(MOD-sp2) 84.3 ml LVAs ap2 14.7 cm\S\2 LVLs ap2 6.1 cm ESV(MOD-sp2) 29.1 ml ESV(sp2-el) 30.3 ml EF(MOD-sp2) 65.5 % SV(MOD-sp4) 57.4 ml SI(MOD-sp4) 26.9 ml/m\S\2 SV(MOD-sp2) 55.2 ml SI(MOD-sp2) 25.9 ml/m\S\2 Doppler Measurements and Calculations MV E max roseanna 182.0 cm/sec MV A max roseanna 141.4 cm/sec MV E/A 1.3 MV V2 max 192.7 cm/sec MV max PG 14.9 mmHg MV V2 mean 108.6 cm/sec MV mean PG 5.6 mmHg MV V2 VTI 91.8 cm MVA(VTI) 1.5 cm\S\2 MV dec time 0.44 sec Ao V2 max 297.8 cm/sec Ao max PG 35.5 mmHg Ao max PG (full) 28.6 mmHg Ao V2 mean 198.8 cm/sec Ao mean PG 18.5 mmHg Ao mean PG (full) 14.2 mmHg Ao V2 VTI 71.9 cm DOMENICO(I,A) 2.0 cm\S\2 DOMENICO(I,D) 2.0 cm\S\2 DOMENICO(V,A) 1.7 cm\S\2 DOMENICO(V,D) 1.7 cm\S\2 LV V1 max PG 6.9 mmHg LV V1 mean PG 4.3 mmHg LV V1 max 131.7 cm/sec LV V1 mean 98.0 cm/sec LV V1 VTI 35.9 cm MR max roseanna 594.4 cm/sec MR max PG 141.3 mmHg SV(Ao) 539.4 ml SI(Ao) 253.2 ml/m\S\2 SV(LVOT) 140.2 ml SI(LVOT) 65.8 ml/m\S\2 TV E max roseanna 165.7 cm/sec PA V2 max 185.5 cm/sec PA max PG 13.8 mmHg PA acc slope 700.5 cm/sec\S\2 PA acc time 0.13 sec PA pr(Accel) 19.6 mmHg
[2017-05-24 15:49] VITALS: BP 131/64; PULSE 58; TEMP 36.6; O2SAT 95
[2017-05-24] MEDS: CEPHALEXIN MONOHYDRATE 500 MG CAP PO SCH ×2 (16:29→20:37)
[2017-05-24] MEDS: DEXAMETHASONE INJ 6 MG in SYRINGE 0 ML IV SCH ×2 (16:30→20:41)
--- NOTE | 2017-05-24 16:51 | CONSULTATION REPORT ---
DATE OF CONSULTATION: 05/24/2017 CHIEF COMPLAINT: Upper and lower extremity weakness, frequent falls. HISTORY OF PRESENT ILLNESS: Sona is delightful, she is 82 years of age. She has frequent falls, deteriorating neurological status over the last several months. She had snap pop in her back many months ago, not really an issue, but now over the course of last 3 months, has progressively gone downhill, unstable gait and frequent falls. She ambulates with a couple of canes, actually fell, broke her wrist because of her impaired stability. She has also suffered some head trauma, facial trauma with the wrist as well. She was ____ [facility]. Dr. Ernst Jernigan picked her up on the fact that she has profound neurological issue. 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 PAST MEDICAL HISTORY: Reviewed. FAMILY HISTORY: Diabetes. SOCIAL HISTORY: Nonsmoker, , retired ____. ALLERGIES: None. MEDICATIONS: Numerous. REVIEW OF SYSTEMS: She denies fevers, sweats, chills. Admits to no memory loss, some paralysis, some weakness. No easy bruisability. OBJECTIVE: VITAL SIGNS: 152/52 blood pressure, respirations 16, pulse 66. HEENT: She has some eye trauma on the right with bruising. ENT essentially normal. NECK: Supple, stiff and loss of range of motion, mildly positive Spurling maneuver. CHEST: Clear. LUNGS: Clear. ABDOMEN: Soft, nontender. EXTREMITIES: Slightly swollen. 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 She is brisk in her knee jerk reflexes. She has no clonus. I would grade her hand strength to be approximately 3/5, biceps function decreased, triceps function decreased. She also has significant loss of sensation in all fingers of bilateral upper extremities. Her toes are appropriate. Images demonstrate cervical cord compression at 3-4, 4-5, 5-6 cervical spine with edema. 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 DISPOSITION: I am scheduling her for surgery tomorrow. We will keep her n.p.o. after midnight. It will be a 2-3 level ACDF cervical spine, 3-4, 4-5, 5-6 with bone graft and an anterior plate. I think we are going to accomplish this surgical endeavor in approximately 90-100 minutes. The patient has been informed, she is on board. She is well aware she needs something to ____.
[2017-05-24 20:00] VITALS: O2SAT 99
[2017-05-24] MEDS: ATORVASTATIN 40 MG TAB PO SCH (20:36)
--- NOTE | 2017-05-24 20:53 | Progress Note ---
Subjective Date of Service: May 24, 2017. Subjective Pt evaluation today including: conversation w/ patient, conversation w/ family (sister), physical exam, chart review, lab review, review of studies (MRI scans of c spine, l spine, etc ), conversation w/ it architecture consultant (Dr. Brown, orthopedics) , review of inpatient medication list Pain: had mild neck pain last pm, now resolved PO Intake: fair Voiding: incontinence patient reports progressive b/l hand numbness and weakness for 4-6 months difficult now to feed, perform ADLs, etc has had at least 2 falls in the last week -- she states "my left leg just gives out" walks with a stooped posture gait has been getting worse had right wrist fracture treated by the office of Allie Kern & Sarah last Thursday - now in splint Problem List Medical Problems: (1) Fall Status: Acute (2) Weakness Status: Acute Review of Systems Constitutional: No fever Respiratory: No shortness of breath Cardiac: No chest pain Abdomen: No pain Objective Vital Signs Date Time Temp Pulse Resp B/P (MAP) Pulse Ox O2 Delivery O2 Flow Rate FiO2 05/24/17 16:00 Room Air 05/24/17 15:49 36.6 58 18 131/64 (86) 95 Room Air 05/24/17 08:00 Room Air 05/24/17 07:07 36.7 57 16 147/71 (96) 97 Room Air 05/24/17 00:00 99 Room Air 05/23/17 23:42 37.1 68 18 143/63 (89) 97 Room Air 05/23/17 21:03 64 135/71 (92) Physical Exam General Appearance: no apparent distress ENT: pharynx normal Neck: no JVD Respiratory/Chest: lungs clear, no respiratory distress, no accessory muscle use Cardiovascular: regular rate, rhythm, no gallop, + systolic murmur (1-2/6 RUSB) Abdomen: normal bowel sounds, non tender, soft, no organomegaly Extremities: no pedal edema Neurologic/Psychiatric: alert, oriented x 3, + motor weakness (handgrip 3/5 b/l , worse on right; lower extremity strength seems 5/5 and symmetric; patellar reflexes are 3+, maybe closer to 4+) Skin: + pertinent finding (ecchymoses over right eye; scattered bruises on arms ) Comments: musculo - right wrist splint in place; marked OA changes of all fingers b/l hands; neck - restricted ROM with passive rotation; mild tenderness in paraspinal musculature of neck Laboratory Results Last 24 Hours Test 05/24/17 08:10 05/24/17 08:36 05/24/17 11:26 05/24/17 16:35 Bedside Glucose 140 mg/dl 300 mg/dl 171 mg/dl Sodium Level 139 mmol/L Potassium Level 3.4 mmol/L Chloride Level 104 mmol/L Carbon Dioxide Level 27 mmol/L Anion Gap 8.0 mmol/L Blood Urea Nitrogen 34 mg/dl Creatinine 1.46 mg/dl Est Creatinine Clear Calc Drug Dose 37.2 ml/min Estimated GFR () 38.7 Estimated GFR (Non- 33.4 BUN/Creatinine Ratio 23.0 Random Glucose 166 mg/dl Calcium Level 8.0 mg/dl Magnesium Level 2.4 mg/dl Vitamin B12 Level 493 pg/mL Thyroid Stimulating Hormone (TSH) 1.420 uIu/ml Test 05/24/17 19:42 Bedside Glucose 166 mg/dl Assessment and Plan 82yo female - 1. severe cervical spine DJD with resulting severe spinal stenosis especially at C4-C6 - I believe her ongoing disability of the hands and now the falls is due to a progressive cervical spinal stenosis. The cord edema is likely from the recent falls with resulting trauma to the neck. Fortunately no fractures were seen on imaging. She appears to have early myelopathic changes on exam (brisk reflexes, etc). I discussed her case with Dr. Brown who came and consulted tonight and feels she should have fairly urgent surgery - hopefully tomorrow. In meantime place on decadron 6mg IV TID. From a medical standpoint she is optimized for surgery. She carries moderate cardiac risk in light of chronic diastolic CHF, CAD, valvular heart disease. ECHO today shows intact aortic valve function (she is s/p TAVR procedure for h/ o aortic stenosis). LV wall motion on echo was normal. From CHF standpoint she is compensated. 2. GNR UTI - start keflex 500mg BID. Follow culture. 3. 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 B12, TSH, etc all wnl. 4. hypokalemia - replace; check BMP am. 5. chronic diastolic CHF - compensated. 6. HTN - controlled. 7. T2DM - uncontrolled, and will likely worsen w/ steroids. Adjust correction factor to 20; add carb coverage 1:6. Adjust as needed. Lantus BID. 8. right wrist fracture - nonoperative Rx with splint. 9. AVR - echo with intact aortic valve function. 10. gout - no symptoms/signs at this time. 11. DVT proph - no chemical means due to upcoming cervical spine surgery. SCDs for now. 12. CKD stage 3 - creatinine is at baseline; BMP am for stability. 13. mild anemia - likely due to #12 above. CBC am for stability. 14. CAD - hold aspirin for now; resume when safe to do so by orthopedics. NO ischemic symptoms at this time. Change to full admission status due to #1 and cervical myelopathy - In my clinical judgment this beneficiary meets acute admission criteria, established by [facility], that includes being hospitalized through two midnights. Continued [facility] stay due to: ambulation difficulties, multiple IV medications needed, other (need for c-spine surgery)
[2017-05-24 23:07] VITALS: BP 149/68; PULSE 60; TEMP 36.6; O2SAT 100
[2017-05-25] VITALS (10 sets, daily range): BP systolic 148–178; BP diastolic 57–72; PULSE 55–73; TEMP 36.5–37.1; O2SAT 95–100
[2017-05-25] MEDS: ACETAMINOPHEN 500 MG TAB PO SCH ×3 (00:43→20:10)
[2017-05-25 05:57] LABS: COMPLETE YES; HEMATOCRIT 31.8 % (37-47); IG% 0.1 %; LYMPH % 11.6 %; LYMPH ABS # 0.81 K/uL (1.2-3.4); MEAN CELL VOLUME 94.6 fL (80-100); MEAN CORPUSCULAR HGB CONC 32.7 g/dl (32-36); MEAN PLATELET VOLUME 10.6 fL (7.4-10.4); MONO % 0.7 %; NEUT % 87.6 %; PLATELET COUNT 178 K/uL (130-400); RED BLOOD COUNT 3.36 M/uL (4.2-5.4)
[2017-05-25 06:03] LABS: INR 1.1 (0.9-1.1); PROTHROMBIN TIME (PATIENT) 11.6 SECONDS (9.0-12.0)
[2017-05-25 06:27] LABS: BUN/CREATININE RATIO 25.5 (10-20); CALCIUM 8.5 mg/dl (8.5-10.1); CREATININE 1.55 mg/dl (0.60-1.20); POTASSIUM 4.1 mmol/L (3.5-5.1)
[2017-05-25 06:41] LABS: BETA-HYDROXYBUTYRATE 1.27 mg/dL (0.2-2.81)
[2017-05-25] MEDS: AMLODIPINE BESYLATE 5 MG TAB PO SCH (07:33)
[2017-05-25] MEDS: ALLOPURINOL 300 MG TAB PO SCH (07:33)
[2017-05-25] MEDS: POTASSIUM CHLORIDE 10 MEQ TABCR PO SCH (07:33)
[2017-05-25] MEDS: FUROSEMIDE 40 MG TAB PO SCH ×2 (07:33→20:54)
[2017-05-25] MEDS: CEPHALEXIN MONOHYDRATE 500 MG CAP PO SCH ×2 (07:33→20:55)
[2017-05-25] MEDS: DEXAMETHASONE INJ 6 MG in SYRINGE 0 ML IV SCH ×2 (07:54→20:52)
[2017-05-25] MEDS: INSULIN ASPART 100 UNITS/ML 3 ML PEN SC SCH ×4 (09:06→21:15)
[2017-05-25] MEDS: INSULIN GLARGINE SOLOSTAR 100 UNITS/ML 3 ML PEN SC SCH ×2 (09:06→21:35)
[2017-05-25] MEDS: MICONAZOLE NITRATE POWDER 43 GM EXT PRN (09:59)
[2017-05-25] MEDS ORDERED: ONDANSETRON INJ 2 MG/ML 2 ML VIAL ONE (10:45)
[2017-05-25] MEDS ORDERED: LIDOCAINE HCL 2% 2 ML VIAL (20MG/ML) ONE (10:45)
[2017-05-25] MEDS ORDERED: DEXAMETHASONE SOD INJ 4 MG/ML VIAL ONE (10:45)
[2017-05-25] MEDS ORDERED: FENTANYL CITRATE INJ 50 MCG/1 ML 2 ML VIAL ONE (10:45)
[2017-05-25] MEDS ORDERED: MIDAZOLAM HCL 1 MG/ML 2ML VIAL ONE (10:45)
[2017-05-25] MEDS ORDERED: ROCURONIUM BROMIDE 10 MG/ML 5 ML VIAL IV ONE (10:45)
[2017-05-25] MEDS ORDERED: PROPOFOL IV EMULSION 10 MG/ML 20 ML VIAL IV ONE (10:45)
[2017-05-25] MEDS ORDERED: ACETAMINOPHEN 1000 MG/100 ML IV IV ONE (10:58)
[2017-05-25] MEDS ORDERED: ALBUMIN HUMAN 5% 12.5 GM/250 ML VIAL IV ONE (10:59)
[2017-05-25] MEDS ORDERED: ONDANSETRON INJ 2 MG/ML 2 ML VIAL IV PRN ×2 (11:00→15:15)
[2017-05-25] MEDS ORDERED: ATROPINE SULFATE 0.1 MG/ML 5ML SYR IV PRN (11:00)
[2017-05-25] MEDS ORDERED: HYDROmorphone INJ 2 MG/ML SYR/VIAL IV PRN (11:00)
[2017-05-25] MEDS ORDERED: FLUMAZENIL 0.1 MG/1 ML 10 ML VIAL IV PRN (11:00)
[2017-05-25] MEDS ORDERED: NALOXONE HCL 0.4 MG/1 ML VIAL/CARP IV PRN ×2 (11:00→15:15)
[2017-05-25] MEDS ORDERED: MEPERIDINE HCL 25 MG/ML CARP IV PRN (11:00)
[2017-05-25] MEDS ORDERED: PHENYLEPHRINE 100MCG/ML 5ML SYR IV PRN (11:00)
[2017-05-25] MEDS ORDERED: LABETALOL HCL IV 5 MG/ML 20ML IV PRN (11:00)
[2017-05-25] MEDS ORDERED: EpHEDrine SULFATE INJ 50 MG/ML AMP IV PRN (11:00)
[2017-05-25] MEDS ORDERED: NovoLIN-R INSULIN PER UNIT CHARGE ONE ×2 (11:56→15:27)
[2017-05-25] MEDS ORDERED: NURSING VERBAL MED ORDER ONE ×2 (12:00→13:10)
[2017-05-25] MEDS ORDERED: CEFAZOLIN SOD 2000MG/10 ML IV PUSH IV ONE (12:59)
[2017-05-25] MEDS ORDERED: GELATIN SPONGE SZ 100 ONE (13:07)
[2017-05-25] MEDS ORDERED: BUPIVACAINE/EPINEPHRINE 0.25% 1:200,000 30 ML VIAL ONE (13:08)
[2017-05-25] MEDS ORDERED: BACITRACIN 50000 UNIT VIAL ONE (13:08)
[2017-05-25] MEDS ORDERED: THROMBIN FOR SOLN 20000 UNIT KIT ONE (13:08)
[2017-05-25] MEDS ORDERED: GLYCOPYRROLATE INJ 0.2 MG/ML VIAL ONE (13:43)
[2017-05-25] MEDS ORDERED: NEOSTIGMINE METHYLSULFATE 1 MG/ML 10ML VIAL ONE (13:43)
[2017-05-25] MEDS ORDERED: PHENYLEPHRINE 100MCG/ML 5ML SYR ONE (13:58)
[2017-05-25] MEDS ORDERED: EpHEDrine SULFATE 50MG/5ML SYR ONE (13:58)
--- NOTE | 2017-05-25 15:13 | DIAGNOSTIC IMAGING REPORT ---
INTRAOPERATIVE LATERAL VIEW THE CERVICAL SPINE 2 VIEWS CLINICAL HISTORY: ACDF C3-6 COMPARISON STUDY: Conventional radiographic study dated 04/28/2017 FINDINGS: 6.5 seconds of fluoroscopic time was utilized. 2 intraoperative fluoroscopic spot images are provided for interpretation. There are postsurgical changes of discectomies and anterior spinal fusion C3-4, C4-5, and C5-6 level. The lower cervical spine is poorly visualized due to the intraoperative fluoroscopic spot technique. IMPRESSION: Intraoperative findings as described above. Electronically signed by: Bryce Suarez M.D. 05/25/2017 3:12 PM Dictated Date/Time: 05/25/2017 3:11 PM
[2017-05-25] MEDS ORDERED: DEXAMETHASONE INJ 8 MG in SYRINGE 0 ML IV PRN (15:15)
[2017-05-25] MEDS ORDERED: ACETAMINOPHEN IV 1,000 MG in EMPTY BAG 0 ML IV PRN (15:15)
[2017-05-25] MEDS ORDERED: RACEPINEPHRINE 2.25% NEBU SOLN 0.5 ML VIAL INH PRN (15:15)
[2017-05-25] MEDS ORDERED: OXYCODONE HCL IR 5 MG TAB (IMMEDIATE RELEASE) PO PRN (15:15)
[2017-05-25] MEDS ORDERED: HYDROmorphone INJ 0.5 MG/0.5 ML SYR IV PRN (15:15)
[2017-05-25] MEDS ORDERED: MAGNESIUM HYDROXIDE SUSP 30 ML UDC PO PRN (15:15)
[2017-05-25] MEDS ORDERED: LORAZEPAM INJ 0.5 MG in SYRINGE 0.75 ML IV PRN (15:15)
[2017-05-25] MEDS: FENTANYL CITRATE INJ 50 MCG/1 ML 2 ML VIAL IV PRN ×3 (15:47→17:15)
--- NOTE | 2017-05-25 16:29 | Anesthesiology Progress Note ---
Anesthesia Post Op Note Date & Time May 25, 2017 at 16:28 Vital Signs Pain Intensity: 2 Vital Signs Past 12 Hours Date Time Temp Pulse Resp B/P (MAP) Pulse Ox O2 Delivery O2 Flow Rate FiO2 05/25/17 16:15 36.6 05/25/17 16:14 53 18 05/25/17 16:14 54 18 100 05/25/17 16:11 169/60 05/25/17 16:09 57 18 05/25/17 16:09 56 18 100 05/25/17 16:06 170/90 05/25/17 16:04 56 19 100 05/25/17 16:04 56 19 05/25/17 16:03 165/59 05/25/17 16:02 57 18 05/25/17 16:02 57 18 100 05/25/17 16:01 150/117 05/25/17 15:57 58 18 100 05/25/17 15:57 58 18 05/25/17 15:56 170/62 05/25/17 15:52 59 19 05/25/17 15:52 60 19 100 05/25/17 15:51 61 17 160/65 100 05/25/17 15:51 61 17 05/25/17 15:46 56 17 05/25/17 15:46 56 17 156/52 100 05/25/17 15:41 59 18 161/83 100 05/25/17 15:41 59 18 05/25/17 15:36 65 19 05/25/17 15:36 65 19 165/84 98 05/25/17 15:31 64 16 05/25/17 15:31 63 16 172/58 100 05/25/17 15:26 65 19 05/25/17 15:26 65 19 166/59 100 05/25/17 15:21 66 18 169/55 100 05/25/17 15:21 65 18 05/25/17 15:17 164/58 05/25/17 15:16 36.0 68 16 164/58 100 Oxymask 10 05/25/17 08:00 Room Air 05/25/17 06:54 36.5 65 18 148/64 (92) 95 Room Air Notes Mental Status: alert / awake / arousable, participated in evaluation Pt Amnestic to Procedure: Yes Nausea / Vomiting: adequately controlled Pain: adequately controlled Airway Patency, RR, SpO2: stable & adequate BP & HR: stable & adequate Hydration State: stable & adequate Anesthetic Complications: no major complications apparent The patient did well during surgery. She is awake and comfortable in the PACU and her vitals are at her baseline. She has been hyperglycemic and treated with insulin. She is currently on a sliding scale which will be followed on the floor.
[2017-05-25] MEDS: SODIUM CHLORIDE 0.9% 1000ML 1,000 ML IV SCH (18:11)
--- NOTE | 2017-05-25 19:13 | Progress Note ---
Subjective Date of Service: May 25, 2017. Subjective Pt evaluation today including: conversation w/ patient, conversation w/ family , physical exam, chart review, lab review, review of inpatient medication list Pain: none reported during my visit PO Intake: just returned from PACU following c-spine surgery Voiding: no voiding problems I saw the patient post-op on the orthopedic floor. She was resting comfortably during the visit. 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 She reported feeling very satisfied with the outcome of the surgery. As expected still with paresthesias of the hands. Problem List Medical Problems: (1) Fall Status: Acute (2) Weakness Status: Acute Review of Systems Constitutional: No fever Respiratory: No shortness of breath Cardiac: No chest pain Abdomen: No pain Objective Vital Signs Date Time Temp Pulse Resp B/P (MAP) Pulse Ox O2 Delivery O2 Flow Rate FiO2 05/25/17 18:45 37.1 64 16 160/59 (92) 100 Nasal Cannula 4.0 Humidified Oxygen 05/25/17 17:45 100 Nasal Cannula 4.0 05/25/17 17:30 62 19 162/95 100 Nasal Cannula 4 05/25/17 17:15 59 17 178/59 100 Nasal Cannula 4 05/25/17 17:00 57 14 165/56 100 Nasal Cannula 4 05/25/17 16:45 57 16 162/94 100 Nasal Cannula 4 05/25/17 16:30 57 16 164/86 100 Nasal Cannula 4 05/25/17 16:15 36.6 05/25/17 16:14 53 18 05/25/17 16:14 54 18 100 05/25/17 16:11 169/60 05/25/17 16:09 57 18 05/25/17 16:09 56 18 100 05/25/17 16:06 170/90 05/25/17 16:04 56 19 100 05/25/17 16:04 56 19 05/25/17 16:03 165/59 05/25/17 16:02 57 18 05/25/17 16:02 57 18 100 05/25/17 16:01 150/117 05/25/17 15:57 58 18 100 05/25/17 15:57 58 18 05/25/17 15:56 170/62 05/25/17 15:52 59 19 05/25/17 15:52 60 19 100 05/25/17 15:51 61 17 160/65 100 05/25/17 15:51 61 17 05/25/17 15:46 56 17 05/25/17 15:46 56 17 156/52 100 05/25/17 15:41 59 18 161/83 100 05/25/17 15:41 59 18 05/25/17 15:36 65 19 05/25/17 15:36 65 19 165/84 98 05/25/17 15:31 64 16 05/25/17 15:31 63 16 172/58 100 05/25/17 15:26 65 19 05/25/17 15:26 65 19 166/59 100 05/25/17 15:21 66 18 169/55 100 05/25/17 15:21 65 18 05/25/17 15:17 164/58 05/25/17 15:16 36.0 68 16 164/58 100 Oxymask 10 05/25/17 08:00 Room Air 05/25/17 06:54 36.5 65 18 148/64 (92) 95 Room Air 05/25/17 00:00 99 Room Air 05/24/17 23:07 36.6 60 18 149/68 (95) 100 Room Air 05/24/17 20:00 99 Room Air Physical Exam General Appearance: no apparent distress Eyes: + pertinent finding (ecchymoses over right eye - unchanged from yesterday 's exam) ENT: pharynx normal Neck: + pertinent finding (dressing in place anterior neck; considerable swelling of anterior neck noted) Respiratory/Chest: lungs clear, no respiratory distress, no accessory muscle use Cardiovascular: regular rate, rhythm, no gallop, no murmur Abdomen: normal bowel sounds, non tender, soft, no organomegaly Extremities: no pedal edema Neurologic/Psychiatric: alert, oriented x 3, + pertinent finding (b/l handgrip improved! 4-5/5 strength for such. Able to move both arms freely. distal leg strength 5/5 ) Comments: musculo - right wrist in splint Laboratory Results Last 24 Hours Test 05/24/17 19:42 05/25/17 05:41 05/25/17 07:31 05/25/17 13:50 Bedside Glucose 166 mg/dl 278 mg/dl 216 mg/dl White Blood Count 7.00 K/uL Red Blood Count 3.36 M/uL Hemoglobin 10.4 g/dL Hematocrit 31.8 % Mean Corpuscular Volume 94.6 fL Mean Corpuscular Hemoglobin 31.0 pg Mean Corpuscular Hemoglobin Concent 32.7 g/dl Platelet Count 178 K/uL Mean Platelet Volume 10.6 fL Neutrophils (%) (Auto) 87.6 % Lymphocytes (%) (Auto) 11.6 % Monocytes (%) (Auto) 0.7 % Eosinophils (%) (Auto) 0.0 % Basophils (%) (Auto) 0.0 % Neutrophils # (Auto) 6.13 K/uL Lymphocytes # (Auto) 0.81 K/uL Monocytes # (Auto) 0.05 K/uL Eosinophils # (Auto) 0.00 K/uL Basophils # (Auto) 0.00 K/uL RDW Standard Deviation 49.6 fL RDW Coefficient of Variation 14.5 % Immature Granulocyte % (Auto) 0.1 % Immature Granulocyte # (Auto) 0.01 K/uL Prothrombin Time 11.6 SECONDS Prothromb Time International Ratio 1.1 Activated Partial Thromboplast Time 25.2 SECONDS Partial Thromboplastin Ratio 1.0 Sodium Level 137 mmol/L Potassium Level 4.1 mmol/L Chloride Level 103 mmol/L Carbon Dioxide Level 25 mmol/L Anion Gap 9.0 mmol/L Blood Urea Nitrogen 40 mg/dl Creatinine 1.55 mg/dl Est Creatinine Clear Calc Drug Dose 35.1 ml/min Estimated GFR () 36.0 Estimated GFR (Non- 31.1 BUN/Creatinine Ratio 25.5 Random Glucose 315 mg/dl Calcium Level 8.5 mg/dl Beta-Hydroxybutyric Acid 1.27 mg/dL Test 05/25/17 15:18 05/25/17 16:08 05/25/17 18:21 Bedside Glucose 225 mg/dl 237 mg/dl 195 mg/dl Assessment and Plan 82yo female - 1. severe cervical spine DJD with resulting severe spinal stenosis especially at C4-C6 - s/p anterior cervical discetomy with fusion, C3-C6, by Dr. Brown today. Appreciate Dr. Brown's expertise. Continue IV decadron q8h. Change diet texture to mech soft as swallow function is sometimes impaired post c-spine surgery. C-spine collar, therapy, etc - defer to Dr. Brwon. No chemical anticoagulation at this time. 2. e. coli UTI and alpha strep - s/p 2 doses of keflex yesterday, ancef for # 1 today, and resumption of keflex for remainder of course. Plan 5 days. 3. 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 B12, TSH, etc all wnl. 4. hypokalemia - replaced and now normal. 5. chronic diastolic CHF - compensated. Use fluids judiciously. 6. HTN - uncontrolled. Resume BB, amlodipine, etc at this time. 7. T2DM - uncontrolled, due to perioperative stress and IV steroids. Cont lantus BID. Cont novolog - adjust correction factor/carb ratio as needed. Low threshold for IV insulin if FSBS remain high. 8. right wrist fracture - nonoperative Rx with splint. 9. AVR - echo with intact aortic valve function. 10. gout - no symptoms/signs at this time. 11. DVT proph - no chemical means due to upcoming cervical spine surgery. SCDs for now. 12. CKD stage 3 - creatinine is at baseline; BMP am for stability once again. 13. mild anemia - repeat cbc in am for stability. 14. CAD - hold aspirin for now; resume when safe to do so by orthopedics. NO ischemic symptoms post-op. 15. recent falls - likely 2nd to #1. PT, OT when able w/ orthopedics family updated Change to full admission status due to #1 and cervical myelopathy - In my clinical judgment this beneficiary meets acute admission criteria, established by [facility], that includes being hospitalized through two midnights. Continued [facility] stay due to: ambulation difficulties, multiple IV medications needed, other (s/p c-spine decompression) Discharge planning: uncertain
[2017-05-25] MEDS: ATORVASTATIN 40 MG TAB PO SCH (20:54)
[2017-05-25] MEDS: DOCUSATE SODIUM 100 MG CAP PO SCH (20:54)
[2017-05-25] MEDS: CEFAZOLIN IV 2,000 MG in SYRINGE 0 ML IV SCH (21:35)
[2017-05-25] MEDS ORDERED: DEXAMETHASONE INJ 6 MG in SYRINGE 0 ML IV SCH (22:00)
[2017-05-26] VITALS (21 sets, daily range): BP systolic 146–174; BP diastolic 54–72; PULSE 49–70; TEMP 36.4–37.2; O2SAT 93–100
[2017-05-26] MEDS: ACETAMINOPHEN 500 MG TAB PO SCH ×3 (03:38→21:32)
[2017-05-26] MEDS: DEXAMETHASONE INJ 6 MG in SYRINGE 0 ML IV SCH ×3 (03:38→21:32)
[2017-05-26] MEDS: SODIUM CHLORIDE 0.9% 1000ML 1,000 ML IV SCH (05:11)
[2017-05-26] MEDS: CEFAZOLIN IV 2,000 MG in SYRINGE 0 ML IV SCH ×2 (05:11→14:18)
--- NOTE | 2017-05-26 07:05 | OPERATIVE REPORT ---
DATE OF OPERATION: 05/25/2017 PREOPERATIVE DIAGNOSIS: Spinal cord compression C3-C6 cervical spine. POSTOPERATIVE DIAGNOSIS: Same. PROCEDURE: Included ACDF cervical spine, three levels from C3-C6. SURGEON: Dr. Renan Brown. OPERATOR SUPPLY: Nathan Owusu PA-C. COMPLICATIONS: Zero. BLOOD LOSS: 10-20 mL IMPLANTS USED: Acrolinx. DESCRIPTION OF PROCEDURE: The patient was taken to the operating room, a general intubated anesthetic provided to the patient, kept supine. Prepped and draped sterile. We made a transverse skin incision roughly over the C5 vertebrae, dissecting the soft tissue. We had no encounters of bleeding of significance. We came right down to the intervertebral disc at 4-5 cervical spine, did a formal discectomy at 4-5 of the cervical spine, also up at 3-4 and also down 5-6, we were back, and through the posterior longitudinal ligament, we were lateral to the uncovertebral joint. We took out a lot of disc material. There was no injury to the spinal cord that we could perceive. I was very pleased with the decompression. We then took bone from the bone bank itself called allograft. These were placed in the discectomy sites from 3-6. They were all 6 mm in height, tapering to about 5, 30 mm across and approximately 12-13 mm in depth, the anterior and posterior. We tapped these into place. We put an anterior plate over the construct, 48 mm by the Acrolinx once again, screws locking the plate in place. Final tightening was also provided. X-rays looked excellent. We irrigated and closed in layers over a [place] drain. Sterile dressings applied. A collar applied. The patient returned to PACU stable. I attest to the content of the Intraoperative Record and any orders documented therein. Any exception s are noted below.
[2017-05-26 07:22] LABS: HEMATOCRIT 31.5 % (37-47); MEAN CELL VOLUME 94.9 fL (80-100); MEAN CORPUSCULAR HEMOGLOBIN 30.7 pg (25-34); MEAN CORPUSCULAR HGB CONC 32.4 g/dl (32-36); MEAN PLATELET VOLUME 10.9 fL (7.4-10.4); PLATELET COUNT 205 K/uL (130-400); RED BLOOD COUNT 3.32 M/uL (4.2-5.4); WHITE BLOOD COUNT 11.36 K/uL (4.8-10.8)
--- NOTE | 2017-05-26 07:25 | Anesthesiology Progress Note ---
Anesthesia Post Op Note Date & Time May 26, 2017 at 07:25 Vital Signs Pain Intensity: 0.0 Vital Signs Past 12 Hours Date Time Temp Pulse Resp B/P (MAP) Pulse Ox O2 Delivery O2 Flow Rate FiO2 05/26/17 07:11 59 18 95 Room Air 05/26/17 06:53 36.7 57 18 169/68 (101) 95 Room Air 05/26/17 05:00 37.1 60 16 154/68 100 Nasal Cannula 1.0 05/26/17 03:28 67 18 97 Nasal Cannula 2.0 05/26/17 03:00 36.9 64 17 160/72 100 Nasal Cannula 1.0 05/26/17 01:00 37.2 61 17 166/64 100 Nasal Cannula 2.0 05/25/17 23:28 Nasal Cannula 2.0 05/25/17 23:05 73 18 100 Nasal Cannula 4.0 05/25/17 23:00 37.0 61 18 172/65 100 Nasal Cannula 2.0 05/25/17 21:45 36.8 58 16 164/66 100 Humidified Oxygen 4.0 05/25/17 20:39 36.9 57 16 169/57 100 Nasal Cannula 4.0 Humidified Oxygen 05/25/17 20:05 64 16 178/62 100 Nasal Cannula 4.0 Humidified Oxygen Notes Mental Status: alert / awake / arousable, participated in evaluation Pt Amnestic to Procedure: Yes Nausea / Vomiting: adequately controlled Pain: adequately controlled Airway Patency, RR, SpO2: stable & adequate BP & HR: stable & adequate Hydration State: stable & adequate Anesthetic Complications: no major complications apparent
[2017-05-26 07:57] LABS: BUN/CREATININE RATIO 24.4 (10-20); CREATININE 1.49 mg/dl (0.60-1.20); POTASSIUM 3.9 mmol/L (3.5-5.1)
[2017-05-26] MEDS ORDERED: NON-FORMULARY MEDICATION (Cinnamon 500 MG) PO SCH (08:00)
[2017-05-26] MEDS ORDERED: NON-FORMULARY MEDICATION (Cranberry (Vaccinium Macrocarp (Cranberry) 1 CAP) PO SCH (08:00)
[2017-05-26] MEDS: FERROUS SULFATE 325 MG TAB PO SCH (09:24)
[2017-05-26] MEDS: SITAGLIPTIN 25 MG TAB PO SCH (09:25)
[2017-05-26] MEDS: DOCUSATE SODIUM 100 MG CAP PO SCH ×2 (09:25→21:32)
[2017-05-26] MEDS: POTASSIUM CHLORIDE 10 MEQ TABCR PO SCH (09:25)
[2017-05-26] MEDS: CHOLECALCIFEROL 1000 INTER.UNIT TAB PO SCH (09:26)
[2017-05-26] MEDS: AMLODIPINE BESYLATE 5 MG TAB PO SCH (09:26)
[2017-05-26] MEDS: FUROSEMIDE 40 MG TAB PO SCH ×2 (09:26→21:33)
[2017-05-26] MEDS: ALLOPURINOL 300 MG TAB PO SCH (09:26)
[2017-05-26] MEDS: INSULIN GLARGINE SOLOSTAR 100 UNITS/ML 3 ML PEN SC SCH ×2 (09:27→21:40)
[2017-05-26] MEDS: INSULIN ASPART 100 UNITS/ML 3 ML PEN SC SCH ×4 (09:28→21:39)
[2017-05-26] MEDS ORDERED: AMLODIPINE BESYLATE 5 MG TAB PO ONE (12:00)
[2017-05-26] MEDS: ATORVASTATIN 40 MG TAB PO SCH (21:32)
--- NOTE | 2017-05-26 22:29 | Progress Note ---
Subjective Date of Service: May 26, 2017. Subjective Pt evaluation today including: conversation w/ patient, physical exam, chart review, lab review, review of inpatient medication list Pain: right wrist more so than the neck PO Intake: tolerating diet Voiding: no voiding problems patient feeling well today main complaint is that of right wrist pain from recent fracture; no significant neck pain tolerating c-collar BPs running high no bowel movement since admission but passing flatus handgrip continues to be strong b/l Problem List Medical Problems: (1) Fall Status: Acute (2) Weakness Status: Acute Review of Systems Constitutional: No fever Respiratory: No shortness of breath, No dyspnea on exertion Cardiac: No chest pain Abdomen: No pain Neurologic: + numbness/tingling (b/l hands - chronic for months) Objective Vital Signs Date Time Temp Pulse Resp B/P (MAP) Pulse Ox O2 Delivery O2 Flow Rate FiO2 05/26/17 19:40 36.9 70 16 160/60 (93) 99 Room Air 05/26/17 19:02 61 16 99 Room Air 05/26/17 17:00 37.0 55 16 148/68 (129) 99 Room Air 05/26/17 15:20 99 Room Air 05/26/17 15:08 55 16 99 Room Air 05/26/17 15:00 37.0 56 17 146/64 (91) 96 Room Air 05/26/17 14:55 36.4 55 16 147/54 (129) 99 Room Air 05/26/17 13:09 36.4 61 16 147/54 (85) 96 Room Air 05/26/17 11:09 49 16 98 Room Air 05/26/17 11:00 97 Room Air 05/26/17 10:51 36.4 56 18 171/71 (104) 97 Room Air 05/26/17 09:16 62 174/65 (101) 05/26/17 09:00 36.7 62 18 174/65 (129) 93 Room Air 05/26/17 07:45 Room Air 05/26/17 07:11 59 18 95 Room Air 05/26/17 07:00 Room Air 05/26/17 06:53 36.7 57 18 169/68 (101) 95 Room Air 05/26/17 05:00 37.1 60 16 154/68 100 Nasal Cannula 1.0 05/26/17 03:28 67 18 97 Nasal Cannula 2.0 05/26/17 03:00 36.9 64 17 160/72 100 Nasal Cannula 1.0 05/26/17 01:00 37.2 61 17 166/64 100 Nasal Cannula 2.0 05/25/17 23:28 Nasal Cannula 2.0 05/25/17 23:05 73 18 100 Nasal Cannula 4.0 05/25/17 23:00 37.0 61 18 172/65 100 Nasal Cannula 2.0 Physical Exam General Appearance: no apparent distress ENT: pharynx normal Neck: + pertinent finding (c-collar in place; mild swelling anterior neck with ecchymoses ) Respiratory/Chest: lungs clear, no respiratory distress, no accessory muscle use Cardiovascular: regular rate, rhythm, no gallop, no murmur Abdomen: normal bowel sounds, non tender, soft, no organomegaly Extremities: no pedal edema, + pertinent finding (right wrist in splint ) Neurologic/Psychiatric: alert, oriented x 3, + pertinent finding (handgrip b/l approaching 5/5) Skin: + pertinent finding (ecchymoses over right eye - resolving slowly; scattered ecchymoses over arms) Comments: musculo - 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 Laboratory Results Last 24 Hours Test 05/26/17 06:59 05/26/17 07:47 05/26/17 11:47 05/26/17 17:05 White Blood Count 11.36 K/uL Red Blood Count 3.32 M/uL Hemoglobin 10.2 g/dL Hematocrit 31.5 % Mean Corpuscular Volume 94.9 fL Mean Corpuscular Hemoglobin 30.7 pg Mean Corpuscular Hemoglobin Concent 32.4 g/dl RDW Standard Deviation 49.7 fL RDW Coefficient of Variation 14.6 % Platelet Count 205 K/uL Mean Platelet Volume 10.9 fL Sodium Level 136 mmol/L Potassium Level 3.9 mmol/L Chloride Level 104 mmol/L Carbon Dioxide Level 27 mmol/L Anion Gap 6.0 mmol/L Blood Urea Nitrogen 36 mg/dl Creatinine 1.49 mg/dl Est Creatinine Clear Calc Drug Dose 36.5 ml/min Estimated GFR () 37.8 Estimated GFR (Non- 32.6 BUN/Creatinine Ratio 24.4 Random Glucose 237 mg/dl Calcium Level 8.0 mg/dl Bedside Glucose 228 mg/dl 255 mg/dl 145 mg/dl Test 05/26/17 21:02 Bedside Glucose 201 mg/dl Assessment and Plan 82yo female - 1. severe cervical spine DJD with resulting severe spinal stenosis especially at C4-C6 - s/p anterior cervical discetomy with fusion, C3-C6, by Dr. Brown - POD #1. Appreciate Dr. Brown's expertise. Continue IV decadron q8h. Defer tapering to Dr. Brown. C-spine collar, therapy, etc - defer to Dr. Brown. No chemical anticoagulation at this time. Doing well from orthopedic standpoint. 2. e. coli UTI and alpha strep - s/p keflex and ancef over last 48 hours. Ancef was used in the perioperative setting by ortho. This has been d/c. Resume kefle 500mg BID in the AM tomorrow. Plan 5-7 days in total. 3. 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 B12, TSH, etc all wnl. may take weeks/ months to resolve. 4. hypokalemia - replaced and now normal. 5. chronic diastolic CHF - compensated. Will stop IVF today to prevent fluid overload. 6. HTN - uncontrolled. increase norvasc to 10mg daily. 7. T2DM - uncontrolled, due to perioperative stress and IV steroids. Cont lantus BID but increase the AM lantus dose today. Cont novolog - also adjust the correction factor/carb ratio today. 8. right wrist fracture - nonoperative Rx with splint. 9. AVR - echo with intact aortic valve function. 10. gout - no symptoms/signs at this time. 11. DVT proph - no chemical means due to cervical spine surgery. SCDs. 12. CKD stage 3 - creatinine is at baseline; BMP am for stability once again. 13. mild anemia - repeat cbc today stable. 14. CAD - holding aspirin for now; resume when safe to do so by orthopedics. NO ischemic symptoms post-op. 15. recent falls - likely 2nd to #1. PT, OT 16. FEN - d/c fluids; repeat BMP am; [facility] soft T2DM diet. dispo - rehab?? Continued [facility] stay due to: ambulation difficulties, multiple IV medications needed, other (s/p c-spine surgery) Discharge planning: uncertain
[2017-05-27] VITALS (17 sets, daily range): BP systolic 137–171; BP diastolic 57–72; PULSE 55–71; TEMP 36.3–36.7; O2SAT 96–100; Ht 170.2 cm; Wt 102.7 kg
[2017-05-27] MEDS: DEXAMETHASONE INJ 6 MG in SYRINGE 0 ML IV SCH ×2 (04:31→11:47)
[2017-05-27] MEDS: ACETAMINOPHEN 500 MG TAB PO SCH ×3 (04:32→20:43)
[2017-05-27] MEDS ORDERED: BISACODYL 10 MG SUPP PR PRN (06:00)
[2017-05-27] MEDS ORDERED: BISACODYL 5 MG TABEC PO PRN (06:00)
--- NOTE | 2017-05-27 08:11 | ORTHOPEDICS PROGRESS NOTE ---
DATE: 05/27/2017 SUBJECTIVE: Alert, oriented, mentation normal, ambulating slowly with walker. She has made a miraculous recovery from her partial paralysis and dense weakness over the weekend. OBJECTIVE: Wound clean and dry. ASSESSMENT: Status post spinal cord compression and surgery urgently done on Thursday the . DISPOSITION: We will get her up and ambulatory today. Change her dressing today for [facility] tomorrow the .
--- NOTE | 2017-05-27 09:14 | Progress Note ---
Subjective Date of Service: May 27, 2017. Subjective pt is with little complaints outside of her wrist injury and some radicular neuropathy that is previous to surgery, she has had challenges with glucose control due to decadron. this was stopped today Problem List Medical Problems: (1) Fall Status: Acute (2) Weakness Status: Acute Review of Systems Constitutional: + weakness, + fatigue, No fever, No chills Respiratory: No cough, No sputum, No shortness of breath Cardiac: No chest pain, No orthopnea, No edema Abdomen: No pain, No nausea, No vomiting Objective Vital Signs Date Time Temp Pulse Resp B/P (MAP) Pulse Ox O2 Delivery O2 Flow Rate FiO2 05/27/17 07:30 Room Air 05/27/17 07:27 36.5 58 16 168/59 (95) 98 Room Air 05/27/17 07:21 55 14 99 Room Air 05/27/17 04:45 36.5 61 17 161/63 96 Room Air 05/27/17 03:06 57 16 99 Room Air 05/27/17 01:00 99 Room Air 05/27/17 01:00 36.5 68 16 152/68 99 Room Air 05/26/17 23:07 64 16 99 Room Air 05/26/17 21:00 36.9 55 16 160/60 (129) 99 Room Air 05/26/17 19:40 36.9 70 16 160/60 (93) 99 Room Air 05/26/17 19:02 61 16 99 Room Air 05/26/17 17:00 37.0 55 16 148/68 (129) 99 Room Air 05/26/17 15:20 99 Room Air 05/26/17 15:08 55 16 99 Room Air 05/26/17 15:00 37.0 56 17 146/64 (91) 96 Room Air 05/26/17 14:55 36.4 55 16 147/54 (129) 99 Room Air 05/26/17 13:09 36.4 61 16 147/54 (85) 96 Room Air 05/26/17 11:09 49 16 98 Room Air 05/26/17 11:00 97 Room Air 05/26/17 10:51 36.4 56 18 171/71 (104) 97 Room Air 05/26/17 09:16 62 174/65 (101) Physical Exam General Appearance: WD/WN, + mild distress Eyes: PERRL, EOMI Neck: supple Respiratory/Chest: chest non-tender, lungs clear, normal breath sounds Cardiovascular: regular rate, rhythm, no murmur Abdomen: normal bowel sounds, non tender, soft Neurologic/Psychiatric: alert, oriented x 3 Laboratory Results Last 24 Hours Test 05/26/17 11:47 05/26/17 17:05 05/26/17 21:02 05/27/17 08:19 Bedside Glucose 255 mg/dl 145 mg/dl 201 mg/dl 155 mg/dl Assessment and Plan 82yo female -Severe cervical spine DJD with resulting severe spinal stenosis especially at C4-C6 - s/p anterior cervical discetomy with fusion, C3-C6, by Dr. Brown - 05/25 Cervical spine surgery , C-spine collar, therapy, stopping decadron No chemical anticoagulation at this time. 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 B12, TSH, etc all wnl. may take weeks/months to resolve. e. coli UTI and alpha strep - s/p keflex and ancef over last 48 hours. Ancef was used in the perioperative setting by ortho. keflex 500mg BID Plan 7 days hypokalemia - replaced and now normal. chronic diastolic CHF - compensated. AVR - echo with intact aortic valve function. CAD - holding aspirin for now; resume when safe to do so by orthopedics. HTN - uncontrolled. increased norvasc to 10mg daily. T2DM - uncontrolled, due to perioperative stress and IV steroids. Cont lantus BID additional dose of 20 units given 10/20 Cont novolog - also adjusted the correction factor/carb ratio . Continue januvia right wrist fracture - nonoperative Rx with splint. gout - no symptoms/signs at this time. DVT proph - no chemical means due to cervical spine surgery. SCDs. CKD stage 3 - creatinine is at baseline; mild anemia - mixture of chronic anemia and post op acute blood loss anemia Continued [facility] stay due to: ambulation difficulties, multiple IV medications needed, other (s/p c-spine surgery) Discharge planning: uncertain
[2017-05-27] MEDS: POTASSIUM CHLORIDE 10 MEQ TABCR PO SCH (09:22)
[2017-05-27] MEDS: CHOLECALCIFEROL 1000 INTER.UNIT TAB PO SCH (09:22)
[2017-05-27] MEDS: FERROUS SULFATE 325 MG TAB PO SCH (09:23)
[2017-05-27] MEDS: AMLODIPINE BESYLATE 5 MG TAB PO SCH (09:23)
[2017-05-27] MEDS: ALLOPURINOL 300 MG TAB PO SCH (09:23)
[2017-05-27] MEDS: DOCUSATE SODIUM 100 MG CAP PO SCH ×2 (09:23→20:41)
[2017-05-27] MEDS: FUROSEMIDE 40 MG TAB PO SCH ×2 (09:24→20:42)
[2017-05-27] MEDS: SITAGLIPTIN 25 MG TAB PO SCH (09:24)
[2017-05-27] MEDS: POLYETHYLENE (MIRALAX) 17 GM PACK PO SCH (09:28)
[2017-05-27] MEDS: INSULIN ASPART 100 UNITS/ML 3 ML PEN SC SCH ×4 (09:32→20:48)
[2017-05-27] MEDS: INSULIN GLARGINE SOLOSTAR 100 UNITS/ML 3 ML PEN SC SCH (09:33)
[2017-05-27] MEDS: CEPHALEXIN MONOHYDRATE 500 MG CAP PO SCH ×2 (10:28→20:42)
[2017-05-27] MEDS: SENNA 8.6 MG TAB PO SCH (10:28)
[2017-05-27] MEDS ORDERED: LANTUS PER UNIT CHARGE SC STA (12:23)
[2017-05-27] MEDS ORDERED: NURSING VERBAL MED ORDER ONE ×2 (12:30→21:15)
[2017-05-27] MEDS ORDERED: INSULIN GLARGINE SOLOSTAR 100 UNITS/ML 3 ML PEN SC ONE (12:45)
[2017-05-27] MEDS: ATORVASTATIN 40 MG TAB PO SCH (20:41)
[2017-05-27] MEDS ORDERED: INSULIN GLARGINE SOLOSTAR 100 UNITS/ML 3 ML PEN SC SCH (21:00)
[2017-05-27] MEDS ORDERED: INSULIN GLARGINE SOLOSTAR 100 UNITS/ML 3 ML PEN SC STA (21:21)
[2017-05-28] VITALS (10 sets, daily range): BP systolic 117–196; BP diastolic 64–75; PULSE 53–62; TEMP 36.4–36.7; O2SAT 97–99
[2017-05-28] MEDS: INSULIN ASPART 100 UNITS/ML 3 ML PEN SC SCH ×4 (00:07→12:43)
[2017-05-28] MEDS: ACETAMINOPHEN 500 MG TAB PO SCH ×2 (04:27→11:47)
[2017-05-28] MEDS ORDERED: INSULIN GLARGINE SOLOSTAR 100 UNITS/ML 3 ML PEN SC SCH (09:00)
[2017-05-28] MEDS: SITAGLIPTIN 25 MG TAB PO SCH (09:00)
[2017-05-28] MEDS: FERROUS SULFATE 325 MG TAB PO SCH (09:23)
[2017-05-28] MEDS: POTASSIUM CHLORIDE 10 MEQ TABCR PO SCH (09:23)
[2017-05-28] MEDS: FUROSEMIDE 40 MG TAB PO SCH (09:24)
[2017-05-28] MEDS: CHOLECALCIFEROL 1000 INTER.UNIT TAB PO SCH (09:24)
[2017-05-28] MEDS: ALLOPURINOL 300 MG TAB PO SCH (09:24)
[2017-05-28] MEDS: CEPHALEXIN MONOHYDRATE 500 MG CAP PO SCH (09:24)
[2017-05-28] MEDS: AMLODIPINE BESYLATE 5 MG TAB PO SCH (09:24)
[2017-05-28] MEDS: POLYETHYLENE (MIRALAX) 17 GM PACK PO SCH (09:25)
[2017-05-28] MEDS: SENNA 8.6 MG TAB PO SCH (10:11)
[2017-05-28] MEDS: DOCUSATE SODIUM 100 MG CAP PO SCH (10:11)
[2017-05-28] MEDS ORDERED: RXC5 PO (12:34)
[2017-05-28] MEDS ORDERED: SNK PO (12:34)
[2017-05-28] MEDS ORDERED: MRLP17 PO (12:34)
[2017-05-28] MEDS ORDERED: ACET-24 PO (12:34)
[2017-05-28] MEDS ORDERED: AMLO-110 PO (12:34)
[2017-05-28] MEDS ORDERED: KFL500 PO (12:39)
--- NOTE | 2017-05-28 12:40 | Discharge Instructions ---
Discharge Instructions Date of Service May 28, 2017. Admission Reason for Admission: Falls Frequently Discharge Discharge Diagnosis / Problem: cervical stenosis s/p decompression, diabetes uncontrolled Discharge Goals Goal(s): Diagnostic testing, Therapeutic intervention Activity Recommendations Activity Level: Assistance Required Therapies: Physical Therapy, Occupational Therapy . Additional Information Patient informed of condition: Yes Advance Directives: Yes DNR: No Level of Care: Acute Rehab Communicable Disease: No Prognosis: Stable Worthy Catheter: No Instructions / Follow-Up Instructions / Follow-Up 82yo female -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 Brown - 05/25 Cervical spine surgery , C-spine collar, therapy, stopping Decadron No chemical anticoagulation at this time. 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 B12, TSH, etc all wnl. may take weeks/months to resolve. e. coli UTI and alpha strep - Ancef was used in the perioperative setting by ortho. keflex 500mg BID Plan 7 days hypokalemia - replaced and now normal. chronic diastolic CHF - compensated. AVR - echo with intact aortic valve function. CAD - aspirin resume HTN - uncontrolled. increased norvasc to 10mg daily. T2DM - uncontrolled, due to perioperative stress and IV steroids. Cont lantus BID additional dose of 20 units given 05/22 Cont novolog - also adjusted the correction factor/carb ratio . pt stopped januvia as outpt right wrist fracture - nonoperative Rx with splint. gout - no symptoms/signs at this time. DVT proph - no chemical means due to cervical spine surgery. SCDs. CKD stage 3 - creatinine is at baseline; mild anemia - mixture of chronic anemia and post op acute blood loss anemia Current Hospital Diet Patient's current hospital diet: Diabetes Type 2 Diet Discharge Diet Recommended Diet: Diabetes Type 2 Diet Procedures Procedures Performed: Anterior Cervical Discectomy Fusion C3-C6 Pending Studies Studies pending at discharge: no Laboratory Results Hemoglobin A1c Test 03/17/17 13:35 Range/Units Estimated Average Glucose 220 mg/dl Hemoglobin A1c 9.3 H 4.5-5.6 % Medical Emergencies . Who to Call and When: Medical Emergencies: If at any time you feel your situation is an emergency, please call 911 immediately. . Non-Emergent Contact Non-Emergency issues call your: Primary Care Provider, Surgeon (oncologist) Call Non-Emergent contact if: temperature is above 101, your pain is unusual for you . . "Provider Documentation" section prepared by James Oscar. . Core Measure Problem Core Measures: None
[2017-05-28] MEDS ORDERED: NVLGIPEN SC (12:41)
--- NOTE | 2017-05-28 17:05 | Discharge Summary ---
Discharge Summary Date of Service May 28, 2017. Discharge Summary Admission Date: May 24, 2017 at 15:00 Discharge Date: May 28, 2017 Discharge Disposition: Rehab Principal Diagnosis: cervical spine stenosis status post surgery, uncontrolled diabetes Immunizations: Have You Had Influenza Vaccine: Yes Influenza Vaccine Date: May 03, 2015 History of Tetanus Vaccine?: Yes Tetanus Immunization Date: Apr 03, 2015 History of Pneumococcal: Yes Pneumococcal Date: May 24, 2015 History of Hepatitis B Vaccine: Unknown Medication Reconciliation New Medications: Acetaminophen (Sb Non-Aspirin Extra Stre) 500 Mg Tab 1000 MG PO Q8H, #90 TAB Cephalexin Monohydrate (Cephalexin) 500 Mg Cap 500 MG PO BID, #6 CAP Insulin Aspart (Novolog Flexpen) 100 Units/Ml Inj 0 UNITS SC ACHS, #1 PEN Oxycodone HCl (Oxycodone HCl) 5 Mg Tab 5-10 MG PO Q4H PRN for moderate-severe pain, #30 TAB Polyethylene (Miralax) 17 Gm Pow 17 GM PO DAILY, #30 DOSE Senna (Senna Lax) 8.6 Mg Tab 17.2 MG PO QAM, #30 TAB Changed Medications: Amlodipine (Norvasc) 5 Mg Tab 10 MG PO DAILY, #60 TAB (Changed from: 5 MG) Continued Medications: Allopurinol (Zyloprim) 300 Mg Tab 300 MG PO DAILY, TAB Aspirin (Aspirin Ec) 81 Mg Tab 81 MG PO DAILY Atenolol (Tenormin) 25 Mg Tab 50 MG PO BID, 0 Refills Atorvastatin (Lipitor) 40 Mg Tab 40 MG PO HS, TAB Cholecalciferol (Vitamin D) 2,000 Unit Cap 1 CAP PO DAILY Cinnamon (Cinnamon) 500 Mg Cap 500 MG PO DAILY Cranberry (Vaccinium Macrocarp (Cranberry) 250 Mg Cap 1 CAP PO DAILY Ferrous Sulfate (Kp Ferrous Sulfate) 325 Mg Tab 325 MG PO DAILY for 30 Days, #30 TAB 3 Refills Furosemide (Lasix) 40 Mg Tab 40 MG PO BID, TAB Insulin Glargine (Lantus Solostar) 100 Unit/Ml Inj 40 UNITS SC QAM, PEN Insulin Glargine (Lantus Solostar) 100 Unit/Ml Inj 40 UNITS SC QPM, PEN Potassium Chloride (Micro-K Ext Rel) 10 Meq Capcr 20 MEQ PO DAILY, CAP Discharge Exam Review of Systems: Constitutional: No fever, No chills Respiratory: No cough, No sputum, No wheezing Cardiovascular: No chest pain, No orthopnea Musculoskeletal: + joint pain, + muscle pain Neurologic: + weakness, + numbness/tingling, No memory loss, No paralysis Physical Exam: General Appearance: WD/WN, + mild distress Eyes: PERRL, EOMI Respiratory/Chest: chest non-tender, lungs clear, normal breath sounds Cardiovascular: regular rate, rhythm, + systolic murmur Abdomen / GI: normal bowel sounds, non tender, soft Neurologic/Psychiatric: alert, oriented x 3 Hospital Course 82yo female -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 Brown - 05/25 Cervical spine surgery , C-spine collar, therapy, stopping Decadron No chemical anticoagulation at this time. 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 B12, TSH, etc all wnl. may take weeks/months to resolve. e. coli UTI and alpha strep - Ancef was used in the perioperative setting by ortho. keflex 500mg BID Plan 7 days hypokalemia - replaced and now normal. chronic diastolic CHF - compensated. AVR - echo with intact aortic valve function. CAD - aspirin resume HTN - uncontrolled. increased norvasc to 10mg daily. T2DM - uncontrolled, due to perioperative stress and IV steroids. Cont lantus BID additional dose of 20 units given 10/20 Cont novolog - also adjusted the correction factor/carb ratio . pt stopped januvia as outpt right wrist fracture - nonoperative Rx with splint. gout - no symptoms/signs at this time. DVT proph - no chemical means due to cervical spine surgery. SCDs. CKD stage 3 - creatinine is at baseline; mild anemia - mixture of chronic anemia and post op acute blood loss anemia Total Time Spent: Greater than 30 minutes This includes examination of the patient, discharge planning, medication reconciliation, and communication with other providers. Discharge Instructions Please refer to the electronic Patient Visit Report (Discharge Instructions) for additional information.
== END 2017-05-28 14:04 | DRG 472 ==
LOC: EDBD 13:24 → C.EDB 13:25 → C.4E 16:55 → ENRESERV 17:21 → OBSVTOIN 05-24 15:00 → ENRESERV 05-25 15:56 → C.3E 05-25 17:50
PROVIDERS: ADMIT Internal Medicine; ATTEND Internal Medicine
PROC: 0RT30ZZ Resection of Cervical Vertebral Disc, Open Approach (ICD-10-PCS; principal; 2017-05-25 14:30)
PROC: 0RG20J0 Fusion of 2 or more Cervical Vertebral Joints with Synthetic Substitute, Anterior Approach, Anterior Column, Open Approach (ICD-10-PCS; principal; 2017-05-25 14:30)
DX: M48.02 Spinal stenosis, cervical region (principal); M50.021 Cervical disc disorder at C4-C5 level with myelopathy; M50.022 Cervical disc disorder at C5-C6 level with myelopathy; M50.01 Cervical disc disorder with myelopathy, high cervical region; N39.0 Urinary tract infection, site not specified; I13.0 Hypertensive heart and chronic kidney disease with heart failure and stage 1 through stage 4 chronic kidney disease, or unspecified chronic kidney disease; I50.32 Chronic diastolic (congestive) heart failure; G63 Polyneuropathy in diseases classified elsewhere; R29.6 Repeated falls; R26.81 Unsteadiness on feet; B96.20 Unspecified Escherichia coli [E. coli] as the cause of diseases classified elsewhere; E11.65 Type 2 diabetes mellitus with hyperglycemia; T38.0X5A Adverse effect of glucocorticoids and synthetic analogues, initial encounter; E87.6 Hypokalemia; E11.22 Type 2 diabetes mellitus with diabetic chronic kidney disease; N18.3 Chronic kidney disease, stage 3 (moderate); D64.9 Anemia, unspecified; S62.101D Fracture of unspecified carpal bone, right wrist, subsequent encounter for fracture with routine healing; W19.XXXD Unspecified fall, subsequent encounter; M10.9 Gout, unspecified; I25.10 Atherosclerotic heart disease of native coronary artery without angina pectoris; E66.9 Obesity, unspecified; Z68.35 Body mass index [BMI] 35.0-35.9, adult; Z95.4 Presence of other heart-valve replacement; Z79.4 Long term (current) use of insulin; Z79.82 Long term (current) use of aspirin; Z79.899 Other long term (current) drug therapy; Z82.49 Family history of ischemic heart disease and other diseases of the circulatory system; Z83.3 Family history of diabetes mellitus

== ENCOUNTER → 2017-10-01 | Outpatient (CLI) | payer OTHER ==
[~2017-10-01] MED LIST changes: +ACET-24 PO; +AMLO-110 PO; +ATOR-24 PO; -Amlodipine PO; +FERR1TAB13 PO; +INSDGIPEN SC; -INSUINJ4 SQ; +KFL500 PO; +MRLP17 PO; +NVLGIPEN SC; +POTA10CA28 PO; +RXC5 PO; -SITA50TA PO; +SNK PO; -potassium PO
--- NOTE | 2017-10-01 16:28 | DIAGNOSTIC IMAGING REPORT ---
PELVIS/UNILATERAL HIP 2-3VIEWS CLINICAL HISTORY: 82 years-old Female presenting with HIP PAIN. TECHNIQUE: Single frontal view of the pelvis and frontal and frog-leg lateral views of the left hip were obtained. COMPARISON: 05/13/2016. FINDINGS: Osteopenia suspected. Surgical clips project over the right inguinal region. Significant degenerative changes of the lower lumbar spine. Mild degenerative changes of the sacroiliac joints. Pubic symphysis congruent. Bilateral hip joints congruent. Joint spaces are preserved hips. Specifically, the left hip demonstrates minimal osteophytosis at the inferior femoral head. No evidence of fracture or malalignment. IMPRESSION: 1. No acute osseous injury of the pelvis or left hip. 2. Mild degenerative changes of the left hip. Electronically signed by: Glen Hernandes M.D. 10/01/2017 4:27 PM Dictated Date/Time: 10/01/2017 4:25 PM
[2017-10-01 17:45] LABS: HEMATOCRIT 31.2 % (37-47); HEMOGLOBIN 9.9 g/dL (12.0-16.0); MEAN CELL VOLUME 94.3 fL (80-100); MEAN CORPUSCULAR HEMOGLOBIN 29.9 pg (25-34); MEAN CORPUSCULAR HGB CONC 31.7 g/dl (32-36); MEAN PLATELET VOLUME 10.4 fL (7.4-10.4); PLATELET COUNT 250 K/uL (130-400); RED CELL DISTRIBUTION WIDTH CV 14.6 % (11.5-14.5); RED CELL DISTRIBUTION WIDTH SD 49.9 fL (36.4-46.3); WHITE BLOOD COUNT 9.35 K/uL (4.8-10.8)
[2017-10-01 18:32] LABS: BLOOD UREA NITROGEN 37 mg/dl (7-18); CALCIUM 8.4 mg/dl (8.5-10.1); CARBON DIOXIDE 26 mmol/L (21-32); CHOLESTEROL 113 mg/dl (0-200); CREATININE 1.68 mg/dl (0.60-1.20); GLUCOSE 467 mg/dl (70-99); LDL CHOLESTEROL CALCULATED 48 mg/dl; PHOSPHORUS 3.5 mg/dl (2.5-4.9); SODIUM 134 mmol/L (136-145)
[2017-10-02 06:53] LABS: HEMOGLOBIN A1C 10.4 % (4.5-5.6)
== END | disposition home or self-care (01) ==
LOC: C.RADPV 15:47
PROVIDERS: ATTEND Internal Medicine Nephrology
DX: R29.898 Other symptoms and signs involving the musculoskeletal system (principal); M25.552 Pain in left hip; I10 Essential (primary) hypertension; R60.9 Edema, unspecified; N18.3 Chronic kidney disease, stage 3 (moderate); D64.9 Anemia, unspecified; E11.9 Type 2 diabetes mellitus without complications; E78.5 Hyperlipidemia, unspecified

== ENCOUNTER → 2017-10-05 | Outpatient (CLI) | payer OTHER | END | disposition home or self-care (01) | LOC: C.LABPVFM 10:03 | PROVIDERS: ATTEND Internal Medicine Nephrology | DX: I12.9 Hypertensive chronic kidney disease with stage 1 through stage 4 chronic kidney disease, or unspecified chronic kidney disease (principal); R60.9 Edema, unspecified; N18.3 Chronic kidney disease, stage 3 (moderate); D64.9 Anemia, unspecified ==

== ENCOUNTER → 2018-03-25 | Outpatient (CLI) | payer OTHER ==
[~2018-03-25] MED LIST changes: -AMLO-110 PO; +AMLO5TAB3 PO
--- NOTE | 2018-03-25 10:57 | DIAGNOSTIC IMAGING REPORT ---
L LOWER EXT JOINT WITHOUT HISTORY: 82 years-old Female LEFT HIP DJD acute left hip pain and stiffness COMPARISON: Pelvis and left hip radiograph 10/01/2017 TECHNIQUE: Multiplanar multisequence MRI of the left hip were obtained without the use of IV contrast. FINDINGS: LABRUM: Degenerative fraying and irregularity of the bilateral juan ramon with likely chronic left-sided labral tear. No Chondro-labral separation or paralabral cyst. BONE MARROW: Bone marrow signal is within normal limits. No evidence of avascular necrosis, fracture or transient osteoporosis. BURSAE: There is moderate right trochanteric bursitis. Mild enthesitis about the left greater trochanter without definite bursitis. No iliopsoas bursitis. HIP JOINT: Moderate joint space narrowing with chondral thinning and marginal osteophytosis about the left femoral acetabular joint. No large joint effusion, intra-articular loose body or significant subcortical cystic change or edema. MUSCLES: Muscular signal is within normal limits. There is mild diffuse muscular atrophy. SCIATIC NERVE: The morphology and signal characteristics of the sciatic nerve appear normal. PELVIC STRUCTURES: Colonic diverticulosis. Moderate formed stool throughout the colon. Surgically absent uterus. Mild trabeculation about the urinary bladder [place]. Annular disc bulging is noted throughout the lower lumbar spine with facet arthrosis, likely contributing to central canal and foraminal narrowing. IMPRESSION: 1. 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 2. Moderate trochanteric bursitis about the right hip. 3. Colonic diverticulosis. 4. Prior hysterectomy. The above report was generated using voice recognition software. It may contain grammatical, syntax or spelling errors. Electronically signed by: Kwame Morin M.D. 03/25/2018 10:56 AM Dictated Date/Time: 03/25/2018 10:39 AM
== END | disposition home or self-care (01) ==
LOC: C.MRIBC 09:35
PROVIDERS: ATTEND Orthopaedic Surgery
DX: M16.12 Unilateral primary osteoarthritis, left hip (principal); K57.30 Diverticulosis of large intestine without perforation or abscess without bleeding

== ENCOUNTER → 2018-04-01 | Outpatient (CLI) | payer OTHER ==
--- NOTE | 2018-04-01 11:59 | DIAGNOSTIC IMAGING REPORT ---
FLUOROSCOPICALLY GUIDED LEFT HIP STEROID AND ANESTHETIC INJECTION CLINICAL HISTORY: Left hip pain and osteoarthritis COMPARISON STUDY: None FLUOROSCOPY TIME: 29 seconds. NUMBER OF FLUOROSCOPIC IMAGES: 1 FINDINGS: A timeout was performed. The risks the procedure were explained the patient and informed consent was obtained. The patient was prepped and draped in sterile fashion. The skin was anesthetized 1% lidocaine. Under fluoroscopic guidance, a 5 inch 22-gauge needle was advanced into the joint space. Intra-articular location was documented via the injection of Optiray 300. 2 cc of betamethasone and 5 cc of 0.5% Naropin were instilled into the joint. There were no immediate complications. IMPRESSION: Successful fluoroscopically guided left hip intra-articular injection. 2 cc of betamethasone and 5 cc of 0.5% Naropin were instilled intra-articularly. Electronically signed by: Bryce Suarez M.D. 04/01/2018 11:58 AM Dictated Date/Time: 04/01/2018 11:55 AM
== END | disposition home or self-care (01) ==
LOC: C.RADBC 10:43
PROVIDERS: ATTEND Orthopaedic Surgery
DX: M16.12 Unilateral primary osteoarthritis, left hip (principal)